=== PATIENT | female | born 1945 | race Caucasian/White ===

== ENCOUNTER 2024-01-30 06:36 | Inpatient (IN) | payer MEDICARE, OTHER, SELFPAY ==
[2024-01-30] VITALS (9 sets, daily range): BP systolic 120–172; BP diastolic 60–96
--- NOTE | 2024-01-30 03:15 | ED.GENMED ---
History of Present Illness
<FRAN Vuong - Last Filed: 01/30/24 06:34>
General
Chief Complaint: Skin Problem
Source: patient
Exam Limitations: none
Time Seen by Provider: 01/30/24 02:59
Travel History
Have you had any contact with someone who has COVID-19?: No
Do you have any symptoms of coronavirus? Fever > 100 degrees, chills, cough, shortness of breath, sore throat, loss of taste or smell, muscle aches, or headache?: No
History of Present Illness
History of Present Illness:
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 Pt reports she was prescribed Cephalexin by her doctor, and now states the redness has expanded
towards the lateral side of her left wrist. She reports her pain is a 10/10. Pt's daughter states she is due for an MRI because she has been progressively declining in gait. She is following her neurologist. Daughter states they originally thought
it was Parkinson disease, but now believes it may be hydrocephalus.
Past History
<FRAN Vuong - Last Filed: 01/30/24 06:34>
Past History
ED Past Medical History: Hypercholesterolemia, Other (MS) and Other (Sjogren's syndrome)
ED Past Surgical History: Orthopedic
Social History
Tobacco: Non-smoker
Living: with family
Employment: Retired
Review of Systems
<FRAN Vuong - Last Filed: 01/30/24 06:34>
Review of Systems
Other source history: family
EENT: Reports no symptoms
Respiratory: Reports no symptoms
Cardiac: Reports no symptoms
ABD/GI: Reports no symptoms
: Reports no symptoms
Musculoskeletal: Reports no symptoms
Skin: Reports other (Erythematous, left lateral wrist)
Neurological: Reports other (Hx of stroke)
Phy Exam
<FRAN Vuong - Last Filed: 01/30/24 06:34>
Physical Exam
Physical Exam:
Erythematous medial and left lateral wrist, visible scratches seen on wrist, warm to the touch
General Physical Exam
General Presentation: mild distress
General age: appears stated age
General Skin: warm
General Habitus: elderly
General Mental: alert
Skin Exam
Skin Exam: erythema, redness and warmth
Course
<FRAN Vuong - Last Filed: 01/30/24 06:34>
Orders/Labs/Results
Orders:
Orders
01/30/24 03:28
CBC/With Diff [Complete Blood Count/With Diff] Urgent
CMP [Comprehensive Metabolic Panel] Urgent
Sed Rate [Erythrocyte Sed Rate] Urgent
01/30/24 03:33
Acetaminophen [Tylenol] 1,000 mg PO NOW STA
01/30/24 03:34
Acetaminophen [Tylenol] 1,000 mg .ROUTE .STK-MED ONE
01/30/24 03:46
Lactic Acid Q4H
Comment: CANCEL 2nd LACTIC ACID IF 1st LACTIC ACID IS LESS THAN 2
Procalcitonin Urgent
PCT Algorithmm Indication: Sepsis
01/30/24 04:04
Piperacillin/Tazo 4.5 Gram [Zosyn] 4.5 gram in 100 ml IV NOW
01/30/24 04:45
0.9% Sodium Chloride 1000 ml [Nss] 1,000 ml IV BOLUS
01/30/24 04:57
Urinalysis Reflex To Culture Urgent
Date Specimen was Collected: 01/30/24
Time Specimen was Collected: 04:56
Urine Microscopic Reflex Cult Urgent
01/30/24 05:03
CT Head W/o Iv Contrast Urgent
Comment:
Reason For Exam: confusion
01/30/24 05:49
HYDROmorphone [Dilaudid] 0.25 mg IV NOW STA
01/30/24 05:54
Doxycycline [Vibramycin] 100 mg PO NOW STA
Rifampin [Rifadin] 300 mg PO NOW STA
01/30/24 05:55
CR Wrist - Left Min 3 Views Urgent
Comment:
Reason For Exam: wrist swelling and infection
01/30/24 06:00
Flush (0.9% Sodium Chloride) [Flush (Nss)] See Dose Instructions IV PER PROTOCOL
01/30/24 06:16
Tetanus/Diphth/Acelpertussis [Adacel] 0.5 ml IM .ONCE ONE
01/30/24 06:20
Admit/Transfer Patient As Directed
Co-Sign Provider:
Level of Care: Inpatient admission
Assign to:: Telemetry
Physician / Group: Mona Moreira
Diagnosis: sepsis 2/2 possible cat scratch disease
Reason for Telemetry: CVA/TIA
Date to Stop Telemetry: 02/02/24
Time to Stop Telemetry: 11:00
Reason for Hospitalization: sepsis 2/2 possible cat scratch disease
Expected length of stay greater than two midnights?: Yes
ELOS- Estimated Length of Stay in days: 3
I certify the patient meets the requirements for IP care: Yes
Bartonella henselae Ab IgG/IgM [S] Urgent
Blood Culture Q30M
DANY Source: Blood/Venous
Specimen Description:
Blood Culture Q30M
DANY Source: Blood/Venous
Specimen Description:
01/30/24 06:21
Code Status As Directed
Resuscitation Status: Full Code
02/02/24 11:00
DC Protocol for Telemetry ONCE
Abnormal Lab Results
01/30/24 01/30/24
03:28 04:57
Hct 35.7 L %
(37.0-47.0)
MPV 10.9 H fL
(7.4-10.4)
Absolute Neuts (auto) 8.4 H 10^3/uL
(1.4-6.5)
Absolute Lymphs (auto) 0.7 L 10^3/uL
(1.2-3.4)
Absolute Monos (auto) 0.7 H 10^3/uL
(0.1-0.6)
Neutrophils % 85.7 H %
(42.2-75.2)
Lymphocytes % 6.7 L %
(20.5-51.1)
ESR 26 H mm/hour
(0-20)
Potassium 3.4 L mmol/L
(3.5-5.1)
Chloride 96 L mmol/L
(98-107)
BUN 24 H mg/dl
(7-17)
Glucose 124 H mg/dl
(70-99)
Calcium 10.7 H mg/dl
(8.4-10.2)
Total Bilirubin 2.0 H mg/dl
(0.2-1.3)
Ur Occult Blood Reflex Trace A
(Negative)
Urine RBC 7-10 A /HPF
(0-2)
Urine Bacteria (Reflex) Few A
(Negative)
01/30/24 03:28
01/30/24 03:28
Vital Signs
Initial and Last Documented VS:
Initial Vital Signs
Temp Pulse Resp BP Pulse Ox
100.3 F 90 20 120/66 99
01/30/24 02:20 01/30/24 02:20 01/30/24 02:20 01/30/24 02:20 01/30/24 02:20
Last Documented Vital Signs
Temp Pulse Resp BP Pulse Ox
100.6 F H 104 18 134/96 100
01/30/24 05:00 01/30/24 05:00 01/30/24 05:00 01/30/24 05:00 01/30/24 05:00
<Gerard Colorado, DO - Last Filed: 01/30/24 05:01>
Orders/Labs/Results
Orders:
Orders
01/30/24 03:28
CBC/With Diff [Complete Blood Count/With Diff] Urgent
CMP [Comprehensive Metabolic Panel] Urgent
Sed Rate [Erythrocyte Sed Rate] Urgent
01/30/24 03:33
Acetaminophen [Tylenol] 1,000 mg PO NOW STA
01/30/24 03:34
Acetaminophen [Tylenol] 1,000 mg .ROUTE .STK-MED ONE
01/30/24 03:46
Lactic Acid Q4H
Comment: CANCEL 2nd LACTIC ACID IF 1st LACTIC ACID IS LESS THAN 2
Procalcitonin Urgent
PCT Algorithmm Indication: Sepsis
01/30/24 04:04
Piperacillin/Tazo 4.5 Gram [Zosyn] 4.5 gram in 100 ml IV NOW
01/30/24 04:45
0.9% Sodium Chloride 1000 ml [Nss] 1,000 ml IV BOLUS
01/30/24 04:57
Urinalysis Reflex To Culture Urgent
Date Specimen was Collected: 01/30/24
Time Specimen was Collected: 04:56
Urine Microscopic Reflex Cult Urgent
01/30/24 05:03
CT Head W/o Iv Contrast Urgent
Comment:
Reason For Exam: confusion
01/30/24 05:49
HYDROmorphone [Dilaudid] 0.25 mg IV NOW STA
01/30/24 05:54
Doxycycline [Vibramycin] 100 mg PO NOW STA
Rifampin [Rifadin] 300 mg PO NOW STA
01/30/24 05:55
CR Wrist - Left Min 3 Views Urgent
Comment:
Reason For Exam: wrist swelling and infection
01/30/24 06:00
Flush (0.9% Sodium Chloride) [Flush (Nss)] See Dose Instructions IV PER PROTOCOL
01/30/24 06:16
Tetanus/Diphth/Acelpertussis [Adacel] 0.5 ml IM .ONCE ONE
01/30/24 06:20
Admit/Transfer Patient As Directed
Co-Sign Provider:
Level of Care: Inpatient admission
Assign to:: Telemetry
Physician / Group: Mona Moreira
Diagnosis: sepsis 2/2 possible cat scratch disease
Reason for Telemetry: CVA/TIA
Date to Stop Telemetry: 02/02/24
Time to Stop Telemetry: 11:00
Reason for Hospitalization: sepsis 2/2 possible cat scratch disease
Expected length of stay greater than two midnights?: Yes
ELOS- Estimated Length of Stay in days: 3
I certify the patient meets the requirements for IP care: Yes
Bartonella henselae Ab IgG/IgM [S] Urgent
Blood Culture Q30M
DANY Source: Blood/Venous
Specimen Description:
Blood Culture Q30M
DANY Source: Blood/Venous
Specimen Description:
01/30/24 06:21
Code Status As Directed
Resuscitation Status: Full Code
02/02/24 11:00
DC Protocol for Telemetry ONCE
Abnormal Lab Results
01/30/24 01/30/24
03:28 04:57
Hct 35.7 L %
(37.0-47.0)
MPV 10.9 H fL
(7.4-10.4)
Absolute Neuts (auto) 8.4 H 10^3/uL
(1.4-6.5)
Absolute Lymphs (auto) 0.7 L 10^3/uL
(1.2-3.4)
Absolute Monos (auto) 0.7 H 10^3/uL
(0.1-0.6)
Neutrophils % 85.7 H %
(42.2-75.2)
Lymphocytes % 6.7 L %
(20.5-51.1)
ESR 26 H mm/hour
(0-20)
Potassium 3.4 L mmol/L
(3.5-5.1)
Chloride 96 L mmol/L
(98-107)
BUN 24 H mg/dl
(7-17)
Glucose 124 H mg/dl
(70-99)
Calcium 10.7 H mg/dl
(8.4-10.2)
Total Bilirubin 2.0 H mg/dl
(0.2-1.3)
Ur Occult Blood Reflex Trace A
(Negative)
Urine RBC 7-10 A /HPF
(0-2)
Urine Bacteria (Reflex) Few A
(Negative)
01/30/24 03:28
01/30/24 03:28
Vital Signs
Initial and Last Documented VS:
Initial Vital Signs
Temp Pulse Resp BP Pulse Ox
100.3 F 90 20 120/66 99
01/30/24 02:20 01/30/24 02:20 01/30/24 02:20 01/30/24 02:20 01/30/24 02:20
Last Documented Vital Signs
Temp Pulse Resp BP Pulse Ox
100.6 F H 104 18 134/96 100
01/30/24 05:00 01/30/24 05:00 01/30/24 05:00 01/30/24 05:00 01/30/24 05:00
<FRAN Vuong - Last Filed: 01/30/24 06:34>
MDM/Problems Addressed
Differential Diagnosis Includes:
Cat scratch fever, Sepsis, Bartonella,
Chronic conditions affecting care: Neurological disorder
Acute Exacerbation and/or Progression of Chronic Illness:
Hx of CVA February 2022
<FRAN Vuong - Last Filed: 01/30/24 06:34>
*Critical Care Note
Total Time (30-74mins, 75-104mins- exclusive of procedures): Not Applicable
ED Attending Note
<FRAN Vuong - Last Filed: 01/30/24 06:34>
-
Portions of this chart may have been created with voice recognition software.� Occasional wrong word or��sound alike� substitutions may have occurred due to the inherent limitations of voice recognition software.
<Gerard Colorado DO - Last Filed: 01/30/24 05:01>
ED Attending Note
Patient seen and examined by attending physician: Yes
I performed the substantive portion of visit, reviewed & personally made and approve the management plan that is documented in note by myself or YESSICA.: No
Discharge Plan
Departure
Patient Disposition: Admit
Date of Disposition: 01/30/24
Time of Disposition: 05:00
Admit to: Telemetry
Presentation/result/management discussed w/ accepting MD/DO: Hospitalist
Discharge Problem:
Fever, Cat scratch, Acute confusion
Prescriptions:
No Action
aripiprazole 5 mg Tablet
2.5 mg PO DAILY
rosuvastatin 40 mg Tablet
40 mg PO DAILY
clopidogrel 75 mg Tablet
75 mg PO DAILY
Edarbyclor 40-25 mg Tablet
1 tab PO DAILY
anastrozole 1 mg Tablet
1 mg PO DAILY
Referrals:
PRIVATE,PHYSICIAN [Family Provider] -
Interventions
Interventions:
*Risk Screen - Suicide Last Done: 01/30/24 02:20
*General Assessment Last Done: 01/30/24 02:20
*Neglect/Abuse Screening Last Done: 01/30/24 02:20
ED- Fall Risk Assessment Last Done: 01/30/24 02:20
*ED COVID-19 Vaccine History Last Done: 01/30/24 02:20
Discharge Date and Time
Print Language: MACEDONIAN
[2024-01-30 03:35] LABS: % Basophils 0.2 % (0-2); % Immature Granulocytes 0.4 % (0-0.5); % Lymphocytes 6.7 % (20.5-51.1); % Neutrophils 85.7 % (42.2-75.2); Absolute Lymphocytes 0.7 10^3/uL (1.2-3.4); Absolute Monocytes 0.7 10^3/uL (0.1-0.6); Absolute Neutrophils 8.4 10^3/uL (1.4-6.5); Hematocrit 35.7 % (37.0-47.0); Hemoglobin 12.9 g/dL (12.0-16.0); Mean Corp Hgb Conc. 36.1 g/dL (33.0-37.0); Mean Corpuscular Hgb 30.3 pg (27.0-31.0); Mean Corpuscular Volume 83.8 fL (81.0-99.0); Mean Platelet Volume 10.9 fL (7.4-10.4); Nucleated Red Blood Cells % 0 %; Platelet Count 201 10^3/uL (130-400); Red Blood Cell Count 4.26 10^6/uL (4.20-5.40); White Blood Cell Count 9.9 10^3/uL (4.8-10.8)
[2024-01-30] MEDS: TYLENOL 1000 MG PO (03:35)
[2024-01-30 03:49] LABS: ALT (SGPT) 24 U/L (0-35); AST (SGOT) 28 U/L (14-36); Albumin 4.6 g/dl (3.5-5.0); Alkaline Phosphatase 53 U/L (38-126); Blood Urea Nitrogen 24 mg/dl (7-17); Calcium 10.7 mg/dl (8.4-10.2); Carbon Dioxide 29 mmol/L (22-30); Chloride 96 mmol/L (98-107); Glucose 124 mg/dl (70-99); Potassium 3.4 mmol/L (3.5-5.1); Sodium 137 mmol/L (135-145); Total Protein 7.4 g/dl (6.3-8.2); eGFR 58.02
[2024-01-30 04:05] LABS: Erythrocyte Sed Rate 26 mm/hour (0-20)
[2024-01-30] MEDS: ZOSYN 100 IV (04:31)
[2024-01-30 04:38] LABS: Procalcitonin < 0.05 ng/ml (0.0-0.25)
[2024-01-30 04:41] LABS: Lactic Acid 1.3 mmol/L (0.7-2.0)
[2024-01-30] MEDS: NSS 1000 IV ×2 (04:54→10:08)
--- NOTE | 2024-01-30 05:05 | HPS.HSE ---
Family Physician
-
Family Physician: PHYSICIAN PRIVATE
Chief Complaint
-
confusion and fever
History of Present Illness
Ms. Gerda Thompson is a 79 yo woman with hx morbid obesity, MS, essential HTN, HLD, Sjogren's disease, CVA presents to the ER with expanding redness at site of a cat scratch on left wrist. Patient got scratched on 01/27 on medial aspect left wrist.
She was told to come to the ER for IV antibiotics but refused, she was prescribed Keflex. She took 2 doses of Keflex but had progressing pain and swelling and was convinced to come to the ER.
Patient has significant tenderness left wrist, cannot flex. No measured fevers at home, febrile here in the ER. No nausea/vomiting/diarrhea. No chest pain or shortness of breath. She intermittently is speaking non-sensical things which daughter
say is new as of today. She also does not know the year. She denies change in vision or pain in her eyes. She denies the cat biting her.
Patient lives alone at home. She has has a history of MS and was ambulatory with a walker up until one month ago when her gait has significantly declined. She went to [facility] where work-up with CT Head and MRI performed which were negative for
acute stroke. It was then thought that ambulation issues were more 2/2 MSK issues and osteoarthritis. She was given a steroid injection and discharged to SNF without improvement. Per further revaluation with her neurologist concern brought up
for missed cerebellar stroke and repeat MRI recommended. Other diagnosis on differential is NPH which her sibling had.
Medical History
Past Medical History
Past Medical History: Reports Other (morbid obesity, essential HTN, HLD, Sjogren's disease, CVA, MS)
Past Surgical History: Reports Other
Social History
Tobacco: Non-smoker
Alcohol: Occasional
Living: With Family
Family History
Family History: Not pertinent
Allergies / Home Medications
Allergies reflects when Allergies were last updated in [facility].
Home Medications with original date entered in [facility]
Allergy/Medication List:
Allergies
Allergy/AdvReac Type Severity Reaction Status Date / Time
Gadolinium-Containing Allergy Unknown Verified 01/30/24 02:19
Contrast Medi
Home Medications
anastrozole 1 mg tablet 1 mg PO DAILY 01/30/24
aripiprazole 5 mg tablet 2.5 mg PO DAILY 01/30/24
azilsartan medoxomil 40 mg-chlorthalidone 25 mg tablet (Edarbyclor) 1 tab PO DAILY 01/30/24
clopidogrel 75 mg tablet 75 mg PO DAILY 01/30/24
rosuvastatin 40 mg tablet 40 mg PO DAILY 01/30/24
Review of Systems
-
History Source: Patient
A 12 point ROS was completed and negative except as noted: Yes
Physical Exam
Vital Signs
Vital Signs
Temp Pulse Resp BP Pulse Ox
100.6 F H 104 18 134/96 100
01/30/24 05:00 01/30/24 05:00 01/30/24 05:00 01/30/24 05:00 01/30/24 05:00
Physical Exam
General: No Apparent Distress, Obese and Other (appears confused)
HEENT: PERRLA
Respiratory: Clear; No Wheezes
Cardiac: S1/S2 and Regular Rhythm
GI: Soft, Non Tender and Non Distended
Musculoskeletal: Other (left wrist with erythema extending from dorsal aspect of hand to forearm; limited range of motion 2/2 tenderness, some tenderness to palpation)
Neuro: Awake, Alert and Oriented (to place, not year )
Psych: Calm and Confused
Laboratory Results
-
01/30/24 03:28
01/30/24 03:28
Laboratory Results
Lactic Acid Cancelled 01/30/24 07:45
Total Bilirubin 2.0 mg/dl (0.2-1.3) H 01/30/24 03:28
AST 28 U/L (14-36) 01/30/24 03:28
ALT 24 U/L (0-35) 01/30/24 03:28
Alkaline Phosphatase 53 U/L (38-126) 01/30/24 03:28
Data Reviewed
-
Diagnostic Radiology: Report Reviewed by me
Lab Data: Labs Reviewed by me
Impression/Plan
-
Ms. Gerda Thompson is a 79 yo woman with hx morbid obesity, MS, essential HTN, HLD, Sjogren's disease, CVA presents to the ER with expanding redness at site of a cat scratch on left wrist. She also has new confusion as of past 24 hours. Patient's
family also describes a month of impaired gait with plans for outpatient work-up of cerebellar stroke versus NPH.
Triage VS: T 100.3 up to 100.6 in ER, P 90, RR 2-, BP 120/66, SpO2 99%
LABS: WBC 9.9, Hg 12.9, PLT 201, Na 137, K+ 3.4, Cl 94, BUN 24, Cr 1.0, Glucose 124, Lactate 1.3, Ca 10.7, T. Bili 2.0, AST 28, ALT 24, Alk Phos 53, Procal < 0.05
MAR: IV Zosyn, IVF, Tylenol
Left wrist cellulitis status post cat scratch, concern for cat scratch disease
Sepsis 2/2 above
TME 2/2 above
-admit to tele
-given association with encephalopathy will treat with doxycycline and Rifampin
-ID consult (texted this morning)
-IVF
-pain control
-x-ray left wrist
-monitor response to antibiotics; if worsening redness/swelling of wrist may need ortho consult
Gait Impairment
Hx CVA
-patient with hx CVA
-will continue [facility] Plavix (*reaction with Rifampin; may increase concentration of Plavix but not absolute contraindication)
-continue statin
-will order MRI here given significant impaired mobility. Team to consider reaching out to outpatient neurologist in AM - will request records
Anxiety
-[facility] Aripiprazole (*reaction with Rifampin - Rifampin may reduce levels Abilify)
Hypokalemia
-replete
Hx Breast Cancer
-[facility] Anastrozole
DVT PPx lovenox subQ
FULL CODE
[2024-01-30 05:09] LABS: Urine Albumin Trace (Neg - Trace); Urine Bilirubin Negative (Negative); Urine Character Clear (Clear); Urine Color Yellow; Urine Glucose Negative (Negative); Urine Ketone Negative (Negative); Urine Leukocyte Negative (Negative); Urine Nitrite Negative (Negative); Urine Occult Blood Trace (Negative); Urine Urobilinogen Negative (Neg - 1+)
[2024-01-30 05:57] LABS: Urine Bacteria Few (Negative)
[2024-01-30] MEDS: VIBRAMYCIN 100 MG PO (06:23)
[2024-01-30] MEDS: DILAUDID 0.25 MG IV ×2 (06:23→17:14)
[2024-01-30] MEDS: RIFADIN 300 MG PO (06:24)
--- NOTE | 2024-01-30 09:04 | W.PN.UPDATE ---
Update Note
Progress Note Update
Non-billable entry; patient admitted at 5 AM by [employer]
Arouses to voice, tactile stimulation
unable to state year otherwise oriented to self, month, hospital, daughter
reports LUE wrist pain, unable to flex wrist due to pain/swelling
Assessment:
Left wrist cellulitis status post cat scratch, concern for cat scratch disease
Sepsis POA (fever, tachycardia) POA
- Xray: no acute pathology
- MRI added
- on Rifampin/Doxy; ID consulted
- Ortho consult
- pain control
TME likely related to above process
Subacute change in mental status x 1 month
- previously evaluated at [facility] [place] [facility]
- CT/MRI negative per daughter, no etiology of change in mental status found; there was brief concern for PD but not corroborated on 2nd opinion. Requested records.
- Due for repeat MRI to evaluate occult CVA which is ordered
- check metabolic workup for change in mental status
- infectious workup pending
- check UDS
- Consult Neurology
Gait Impairment, acute on chronic
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
- await MRI
- continue Plavix/Statin
- PT/OT when able
Anxiety - continue Abilify
Hypokalemia - replete prn
Hx of breast cancer
- continue Anastrazole
DVT ppx: Lovenox
Code: Full
[2024-01-30] MEDS: ABILIFY 2.5 MG PO (10:06)
[2024-01-30] MEDS: PLAVIX 75 MG PO (10:07)
[2024-01-30] MEDS: CRESTOR 40 MG PO (10:07)
[2024-01-30] MEDS: ARIMIDEX 1 MG PO (10:08)
--- NOTE | 2024-01-30 10:13 | CON.NEURO4 ---
Addendum entered and electronically signed by Marcellus Trujillo MD 01/30/24 12:45:
I saw and evaluated the patient I reviewed the note by Brandie Benitez and agree with the findings and following comments:
79-year-old woman with a past medical history of previous posterior cerebral artery stroke, multiple sclerosis, dementia presents to the hospital with left-sided hand pain after cat scratch. She is currently being treated with antibiotics notes
left hand is still very painful.
she did have development of confusion that has improved at this point the patient has no complaints at this time. She denies any recent changes in gait or balance says that she normally uses a walker to get up and move around the house. She is
not entirely clear of her medications but does think she is on a medication for prevention of further strokes. Patient reports that she has a tremor intermittently due to nerve pains this does not occur at rest.
Review of her outpatient neurology records indicate that she has been off immunotherapy for multiple sclerosis for several years she was on Copaxone for few years and eventually came off of the medication and has not been followed by her neurologist
that she would be indicated for further immune therapy for multiple sclerosis.
Due to chronic gait issues she was trialed on carbidopa/levodopa but it seems has come off of it at this point after second opinion felt that she did not have Parkinson's disease. She did have neuropsychological testing with findings supportive of
dementia.
Neurologic examination shows some obvious cognitive impairment and poor memory recall, she is fully awake and alert and conversational and pleasant. Obeys multistep commands no evidence of neglect.
There is a left-sided homonymous hemianopia
Limited motor examination of the left hand due to pain but she is able to move the hands and wrists. Right arm has tremor with position but no significant rigidity.
Assessment: Very likely a toxic metabolic encephalopathy due to current infection which is being treated, risk factors for the development of encephalopathy include history of multiple sclerosis as well as previous ischemic stroke and dementia all
of which make development of encephalopathy/delirium easier in this patient. No concern for MS related problem, doubtful of a new ischemic stroke.
Recommendations
-Minimize sedating medications
-Unless further information comes to light, not going to recommend restarting carbidopa/levodopa
-Continue clopidogrel for secondary stroke prevention
-Check MRI of the brain without contrast
-Continue treating infection
-Try to keep normal sleep-wake cycle and minimize sleep interruptions to help minimize delirium
Original Note:
Consultation - Neurology 4
-
CONSULTING PHYSICIAN: Jesusita Trujillo MD
REFERRING PHYSICIAN: Hospitalists/Dr. Bautista
DICTATED BY: BOOGIE Sheikh
DATE/TIME OF REQUEST: 01/30/24
DATE/TIME OF CONSULTATION: 01/30/24
Reason for Consultation: Ambulatory dysfunction, change in mental status
History of Present Illness:
This is a 79-year-old right-handed female who has presented to the hospital on 01/30/24 with report of LUE cat scratch with redness extending up her arm despite PO Keflex. Patient has a PMH of MS, R DIE GRINDER ischemic stroke, cognitive impairment, and
more recently shuffled gait and is followed as an outpatient by [facility]. She has been evaluated by our inpatient Neurology service once in February 2022 for stroke.
From previous evaluation by Neurology BOOGIE Robertson on 02/14/22:
'This is a 77 year old right handed female, significant past medical history for MS and Sjogren's syndrome, who has presented to the hospital with 4-5 days of blurred vision and 'sense of not feeling well.' Patient's symptoms began roughly 4-5 days
ago when she noted an acute onset of blurry vision. Following vision changes she 'felt unwell' but cannot further elaborate. Her daughter Dana is at bedside and contributing to this HPI. Dana believes patient has increased gait
instability/incoordination and generalized weakness from baseline. However, patient denies. Patient will occasionally utilize walker at home for ambulation but daughter notes she required increase use of walker over past couple of days. She denies
accompanying focal limb weakness, headache, dysphagia, dysarthria, aphasia, paraesthesia, loss of consciousness, and loss of bowel or bladder. Denies similar neurological symptoms in the past. Denies history of stroke or TIA. Patient does have a
past medical history of MS, diagnosed in 2007. Her presenting symptoms at onset of diagnosis included: extreme fatigue, gait imbalance, and bilateral hand weakness. She utilized Copaxone for MS management, however after a year she felt the
medication did not benefit her and she discontinued the medication in 2008 and since has opted to not take a preventive medication for MS. She cannot recall last Ms flare occurrence. She was previously seeing a neurologist at [facility], Dr. Samuels,
but has lost follow up in the past 3-4 years. She has not obtained a repeat MRI of brain for assessment of MS lesions in past 5 years. Denies recent trauma. Reports bronchitis in January. Denies recent changes to medication. She reports compliance with
daily medications including daily Aspirin 81mg PO.'
MRI brain was obtained on 02/14/22 and demonstrated a R DIE GRINDER ischemic stroke. MRA head reading was limited by artifact but was suggestive of a right P2 occlusion. She completed 21 days of DAPT at that time and then was continued on Plavix 75mg daily
since then due to the stroke occurring while on aspirin therapy. Patient has poor insight but reports that she lives alone and ambulates with a rolling walker. She thinks it has been quite awhile since she had a fall. She acknowledges that her
daughters have been concerned about her gait and memory but she does not endorse these issues. Patient has been undergoing an outpatient Neurology workup for confusion, shuffled gait, and falls. She had Neuropsychological testing completed in December
2023 that was suggestive of a diagnosis of dementia. There was some spasticity noted in her thighs and in addition to a severely shuffled gait, her Neurologist started her on Sinemet for possible Parkinson disease. She has not had a CELSO scan. She
was scheduled to have an outpatient MRI brain noncontrast next week to rule out new stroke. She is still not taking any disease modifying treatments for MS and has not had a known MS flare in years. Patient had a transient increase in confusion
after the cat scratch, this has improved somewhat. Patient denies any headache, dizziness, speech/swallow difficulty, new weakness, nausea, chest pain, palpitations, and shortness of breath. She endorses chronic numbness in bilateral hands and
severe pain in her LUE, due to the cat scratch site, limiting her ROM/strength.
Past Medical History: Multiple sclerosis, R DIE GRINDER ischemic stroke 02/2022, left homonymous hemianopia, cognitive impairment, possible Parkinson disease, HTN, HLD, Sjogren's syndrome, DJD, spinal stenosis, osteoarthritis, PVCs, peripheral neuropathy,
obesity
Surgical History: B/L TKR
Family History: Daughter- Lupus. Mother- MS. Maternal cousin- MS. Maternal grandmother- CVA.
Social History: Former smoker. Denies alcohol and illicit drug use.
Allergies: Gadolinium contrast.
Home Medications: See below.
Review of Symptoms:
Patient denies any fever, headache, chest pain, shortness of breath, GI or symptoms.
�Per the HPI.�All systems are reviewed negative except above.
Physical Exam:
The patient is afebrile, abdomen is nondistended, breathing is unlabored, skin is warm and dry, no edema.
Neurologic Examination:
The patient is awake, alert and oriented x 3, poor historian/insight. She is able to follow commands and answer questions appropriately. There is no aphasia or dysarthria. On cranial nerve assessment, pupils are 3 mm bilateral, round and reactive
to light and accommodation. There is a left homonymous hemianopia. Extraocular movements are intact. Facial sensations are intact and bilaterally symmetrical, there is no facial asymmetry. Hearing is intact bilaterally to normal conversation volume.
Tongue palate and uvula are midline. Motor strengths are 5/5 right upper, 2/5 left upper, and 3/5 bilateral lower extremities on medical research [place] scale. There is no drift or involuntary movement noted. Tone is normal. Babinski is absent
bilaterally. There was no extinction noted on double simultaneous stimulation. Coordination is intact by finger to nose in the RUE, CHANDLER LUE.
Lab Results: See below.
Neuro Imaging:
1. CT head 01/30/24: There are moderate changes of cortical atrophy and chronic ischemic disease, unchanged. There is an old right occipital lobe infarct, unchanged. There are no acute findings.
2. MRI brain 02/14/22: Subacute/Acute nonhemorrhagic infarct in the right medial temporal and right occipital lobe. Similar to the finding on CT. Mild to moderate diffuse volume loss. Moderate leukoaraiosis.
3. MRA COW 02/14/22: Severely limited examination due to patient motion. Mild to moderate narrowing of the left ICA in the cavernous sinus. Focal area of stenosis in the proximal MCA bilaterally. Limited visualization of the right DIE GRINDER, no definite
vessel identified past the origin.
4. Carotid ultrasound 02/14/22: Homogenous plaque mid right common carotid artery, calcified bulky plaque right carotid bulb. Based on velocity criteria, no hemodynamically significant stenosis seen in the internal carotid artery. Consider further
enhanced imaging if clinically warranted given bulky plaque, though duplex does not demonstrate hemodynamically significant stenosis by velocity measurements. Right external carotid artery with velocity elevation suggestive of external carotid
artery stenosis proximally diseased but may not be of clinical consequence). Moderate/bulky calcified plaque seen left carotid bulb. No hemodynamically significant left internal carotid artery stenosis greater than 50% seen based on velocity
criteria. Antegrade flow bilateral vertebral arteries.
Differentials for the patient's presentation include:
1. Ambulatory dysfunction, unclear etiology. Possibly due to multiple chronic conditions; MS, stroke, cognitive impairment, age in addition to TME due to cat scratch infection. Low concern for acute MS flare or infectious brain process.
2. Subacute stroke possible.
3. Unclear if Parkinson disease is an accurate diagnosis, needs further outpatient workup for this.
4. Cognitive impairment, possible dementia at baseline.
Recommendations:
-MRI Brain noncontrast pending.
-Goal normotension.
-Checking blood work for metabolic abnormalities.
-Neurological checks per unit guidelines.
-PT/OT/ST evaluations.
-Continue Plavix 75mg daily.
-DVT prophylaxis.
-Will follow pending results.
Discussed patient care with: Dr. Trujillo, the patient, patient's daughter
Vital Signs and Labs
-
Vital Signs and Labs:
Vital Signs
Temp Pulse Resp BP Pulse Ox
97.9 F 94 20 153/66 97
01/30/24 11:43 01/30/24 11:43 01/30/24 11:43 01/30/24 11:43 01/30/24 11:43
Lab Results
01/30/24 03:28
01/30/24 03:28
Sodium 137 mmol/L (135-145) 01/30/24 03:28
Potassium 3.4 mmol/L (3.5-5.1) L 01/30/24 03:28
BUN 24 mg/dl (7-17) H 01/30/24 03:28
Glucose 124 mg/dl (70-99) H 01/30/24 03:28
Calcium 10.7 mg/dl (8.4-10.2) H 01/30/24 03:28
Vitamin B12 766 pg/ml (412-931) 01/30/24 10:08
Medications
-
Active Medications
Generic Name Dose Route Start Last Admin
Trade Name Freq PRN Reason Stop Dose Admin
Acetaminophen 650 mg 01/30/24 08:05
Acetaminophen 325 Mg Tablet PO 02/27/24 08:04
Q4HPRN PRN
mild pain/RAMIREZ/temp> 100.4F
Anastrozole 1 mg 01/30/24 08:05 01/30/24 10:08
Anastrozole 1 Mg Tablet PO 02/27/24 08:04 1 mg
DAILY AUDRA Administration
Aripiprazole 2.5 mg 01/30/24 08:05 01/30/24 10:06
Aripiprazole 5 Mg Tablet PO 02/27/24 08:04 2.5 mg
DAILY AUDRA Administration
Azithromycin 250 mg 01/31/24 08:00
Azithromycin 250 Mg Tablet PO 02/03/24 08:01
DAILY AUDRA
Bisacodyl 10 mg 01/30/24 08:05
Bisacodyl 10 Mg Rectal Suppository RECTAL 02/27/24 08:04
[id number] PRN
constipation
Clopidogrel Bisulfate 75 mg 01/30/24 08:05 01/30/24 10:07
Clopidogrel 75 Mg Tablet PO 02/27/24 08:04 75 mg
DAILY AUDRA Administration
Enoxaparin Sodium 40 mg 01/30/24 18:00
Enoxaparin Sodium 40 Mg/0.4 Ml Syringe SC 02/27/24 17:59
QPM AUDRA
Hydromorphone HCl 0.25 mg 01/30/24 08:05
Hydromorphone 0.5 Mg/0.5 Ml Syringe IV 02/13/24 08:04
Q3HPRN PRN
severe pain
Sodium Chloride 1,000 mls @ 100 mls/hr 01/30/24 08:05 01/30/24 10:08
Nss IV 1,000 mls
.Q10H AUDRA Administration
Ampicillin Sodium/Sulbactam 120 mls @ 240 mls/hr 01/30/24 12:00 01/30/24 12:02
Sodium 3 gm/ Sodium Chloride IV 120 mls
Q6H AUDRA Administration
Polyethylene Glycol 17 grams 01/30/24 08:05
Polyethylene Glycol Powder 17 Grams Packet PO 02/27/24 08:04
DAILYPRN PRN
constipation
Rosuvastatin Calcium 40 mg 01/30/24 08:05 01/30/24 10:07
Rosuvastatin (Crestor) 40 Mg Tablet PO 02/27/24 08:04 40 mg
DAILY AUDRA Administration
Senna/Docusate Sodium 1 tablet 01/30/24 08:05
Docusate W/Senna (Lianna-Colace) Tablet PO 02/27/24 08:04
BIDPRN PRN
constipation
Sodium Chloride 0 flush 01/30/24 06:00
Sodium Chloride 0.9% (Flush) Syringe IV 02/27/24 05:59
PER PROTOCOL AUDRA
Home Medications
�Medication �Instructions �Recorded
alpha lipoic acid 50 mg tablet 50 mg PO DAILY 01/30/24
anastrozole 1 mg tablet 1 mg PO DAILY 01/30/24
aripiprazole 5 mg tablet 2.5 mg PO DAILY 01/30/24
ascorbic acid (vitamin C) 500 mg 500 mg PO DAILY 01/30/24
tablet (Vitamin C)
azilsartan medoxomil 40 1 tab PO DAILY 01/30/24
mg-chlorthalidone 25 mg tablet
(Edarbyclor)
calcium carbonate 500 mg PO DAILY 01/30/24
cholecalciferol (vitamin D3) 25 25 mcg PO DAILY 01/30/24
mcg (1,000 unit) tablet (Vitamin
D3)
clopidogrel 75 mg tablet 75 mg PO DAILY 01/30/24
diazepam 5 mg tablet 5 mg PO HS 01/30/24
magnesium oxide 400 mg PO DAILY 01/30/24
rosuvastatin 40 mg tablet 40 mg PO DAILY 01/30/24
--- NOTE | 2024-01-30 10:25 | CON.ID ---
Consultation
-
Date/Time Consultation Requested: January 30, 2024 0805
Date/Time Consultation Performed: January 30, 2024 1025
Requesting Provider: Dr. Mona Moreira
Performing Provider: Dr. Harriett Beckham
Reason for Consultation: Cat scratch, fever, wrist swelling
Chief Complaint / Past History
Chief Complaint
Left wrist swelling and pain
History of Present Illness
History obtained from the patient as well as from review of medical records. She is a 79-year-old female with multiple sclerosis not on treatment, Sjogren's, peripheral neuropathy, CVA presented to the hospital early this morning due to worsening
left wrist pain and redness. On January 27, patient's 8-year-old pet cat thought that the patient was playing when the patient shook her left hand to get the blood flowing due to neuropathy. The cat jumped on her left wrist and the paws dug on to her
hand. She developed pain right away. Patient refused to come to the ER. She was applying Neosporin to the wounds. However the left wrist swelling, and redness progressed. Her daughter convinced her to come to the hospital. Patient's
temperature was 100.6. Patient noted to be confused. She was started on doxycycline and rifampin. Today patient's mental status change has resolved. She reports that her left wrist is very painful and difficult to move. She denies chills. No
visual changes. She reports she is up-to-date with her tetanus vaccine within the last 10 years. The cat is both an indoor and outdoor cat. Her cat is up-to-date with all vaccines.
Past History
Additional Past Medical History:
Multiple sclerosis
Sjogren's syndrome
Neuropathy
Hypertension
Dyslipidemia
CVA
Arthritis
Spinal stenosis
Hx breast CA
Class III obesity BMI 42
Bilateral knee replacement
Allergy History:
Gadolinium-Containing Contrast Medi Allergy (Verified 01/30/24 02:19)
Unknown
Medications Reviewed: Yes
Current Antibiotics:
Doxycycline
Rifampin
Social History
Tobacco: Former Smoker
Alcohol: None
Drug: None
Living: Alone
Family History
Family History: Not Pertinent
Review of Systems
Review of Systems
General: Negative Change in Appetite
HEENT: Negative Sinus Problems or Headache
Cardiovascular: Negative Chest Pain or Edema
Respiratory: Negative Dyspnea or Cough
Gasteroenterology: Other (no diarrhea); Negative Nausea or Vomiting
Genital / Urological: Negative Dysuria or Flank Pain
Neurological: Negative Headache or Dizziness
All systems: All other systems were reviewed and were negative
Vital Signs
Temp Pulse Resp BP Pulse Ox
99.4 F 102 20 132/74 96
01/30/24 08:29 01/30/24 08:29 01/30/24 08:29 01/30/24 08:29 01/30/24 08:29
Selected Entries
01/30/24
05:00
Temp 100.6 F H
Physical Exam
Physical Exam
Constitutional: No Acute Distress, Comfortable and Obese
Eyes: No Conjunctival Hemorrhage and Sclera Anicteric
Lymph Nodes: Negative Lymphadenopathy
Cardiovascular: Regular Rate and S1/S2
Pulmonary: Clear
Gastrointestinal: Soft, Non Tender, Non Distended and Decreased Bowel Sounds
Genito-Urinary: Negative CVA Tenderness
Skin: Other (Left hand/wrist medially with puncture wounds without drainage, + erythema/edema/warmth medial hand to wirst. + tenderness at wrist, ROM limited. )
Neurological: AO x 3; Negative Meningeal Signs
Lab / Diagnostic Study Results
01/30/24 03:28
01/30/24 03:28
Abs Immat Gran (auto) 0.0 10^3/uL (0-0.05) 01/30/24 03:28
Absolute Neuts (auto) 8.4 10^3/uL (1.4-6.5) H 01/30/24 03:28
Absolute Lymphs (auto) 0.7 10^3/uL (1.2-3.4) L 01/30/24 03:28
Absolute Monos (auto) 0.7 10^3/uL (0.1-0.6) H 01/30/24 03:28
Absolute Basos (auto) 0.0 10^3/uL (0-0.2) 01/30/24 03:28
Immature Gran % 0.4 % (0-0.5) 01/30/24 03:28
Neutrophils % 85.7 % (42.2-75.2) H 01/30/24 03:28
Lymphocytes % 6.7 % (20.5-51.1) L 01/30/24 03:28
Monocytes % 7.0 % (1.7-9.3) 01/30/24 03:28
Eosinophils % 0.0 % (0-6) 01/30/24 03:28
Basophils % 0.2 % (0-2) 01/30/24 03:28
ESR 26 mm/hour (0-20) H 01/30/24 03:28
Lactic Acid Cancelled 01/30/24 07:45
Procalcitonin < 0.05 ng/ml (0.0-0.25) 01/30/24 03:46
Ur Squamous Epith Cells 3-5 /LPF (Few) 01/30/24 04:57
Microbiology Results
Micro:
01/30/24 06:20 Blood Culture - Pending
Blood/Venous
01/30/24 06:20 Blood Culture - Pending
Blood/Venous
01/30/24 Wrist XRAY Left wrist: No acute fracture, malalignment, or radiopaque foreign body. Severe osteoarthritic changes first carpometacarpal joint. Widening of scapholunate interval compatible with prior soft tissue injury.
Assessment / Plan
# Cat-scratch cellulitis of left hand/wrist
# Fever
- Xray no fracture
-Start Unasyn 3g IV q6 for cellulitis.
- Follow temps.
- Too early for disseminated Bartonella/encephalopathy.
Mental status changed resolved quickly.
DC doxycycline and rifampin.
Instead give empiric Z-pamela to prevent potential complications.
[2024-01-30 10:32] LABS: Ammonia < 9 umol/L (9-30)
[2024-01-30 10:38] LABS: Erythrocyte Sed Rate 35 mm/hour (0-20)
[2024-01-30 11:13] LABS: TSH Reflex To Free T4 1.04 uIU/ml (0.47-4.68)
[2024-01-30 11:48] LABS: Folate 12.5 ng/ml (2.76-20); Vitamin B12 766 pg/ml (239-931)
[2024-01-30] MEDS: UNASYN IV ×2 (12:02→17:14)
--- NOTE | 2024-01-30 12:36 | CON.ORTHO ---
Consultation
-
Date/Time Consultation Requested: January 29
Date/Time Consultation Performed: January 29
Requesting Provider: Lily
Performing Provider: Cassia Culver
Reason for Consultation: Cellulitis LEFT wrist/hand s/p cat bite
Consultation - Orthopedics
History
Dictation#[id number]
Asked to see this 79-year-old white female with PMH of CVA (February 2022) on Plavix, Hypercholesterolemia, MS and Sjogren's syndrome who was bitten by her 8-year-old cat on January 29. She tells me she was shaking her hand to improve blood flow due to
her underlying neuropathy and the cat thought she was playing with her. She sustained a bite to the dorsum of the left hand. She was admitted through the ER here at [facility] due to acute confusion as well as this potential cat bite
cellulitis and has been admitted to the hospitalist service for further workup. Repeat brain MRI is pending. Left wrist and hand MRI was added. We have been requested in consultation given her left wrist and hand symptoms. Currently on IVABX. Has
been seen by Dr. Beckham with the ID team
Allergies / Home Medications
Allergy/AdvReac Type Severity Reaction Status Date / Time
Gadolinium-Containing Allergy Unknown Verified 01/30/24 02:19
Contrast Medi
�Medication �Instructions �Recorded
alpha lipoic acid 50 mg tablet 50 mg PO DAILY 01/30/24
anastrozole 1 mg tablet 1 mg PO DAILY 01/30/24
aripiprazole 5 mg tablet 2.5 mg PO DAILY 01/30/24
ascorbic acid (vitamin C) 500 mg 500 mg PO DAILY 01/30/24
tablet (Vitamin C)
azilsartan medoxomil 40 1 tab PO DAILY 01/30/24
mg-chlorthalidone 25 mg tablet
(Edarbyclor)
calcium carbonate 500 mg PO DAILY 01/30/24
cholecalciferol (vitamin D3) 25 25 mcg PO DAILY 01/30/24
mcg (1,000 unit) tablet (Vitamin
D3)
clopidogrel 75 mg tablet 75 mg PO DAILY 01/30/24
diazepam 5 mg tablet 5 mg PO HS 01/30/24
magnesium oxide 400 mg PO DAILY 01/30/24
rosuvastatin 40 mg tablet 40 mg PO DAILY 01/30/24
Vital Signs / Lab Results
Temp Pulse Resp BP Pulse Ox
97.9 F 94 20 153/66 97
01/30/24 11:43 01/30/24 11:43 01/30/24 11:43 01/30/24 11:43 01/30/24 11:43
01/30/24 03:28
01/30/24 03:28
Assessment / Plan
PE: Afeb. AAO x 3. Answers questions appropriately. Directed exam of the left wrist and hand reveals some very mild generalized erythema over the dorsum of the hand into the region of the wrist, not extending beyond the MCPs with 2 punctate barboza
from her cat bite. These areas have early scabbing. No active drainage. No obvious evidence of collection or abscess. Some mild generalized tenderness to palpation. Some difficulty making composite fist due to dorsal left wrist and pain and
pain. no obvious signs of tenosynovitis. Palpable pulses distally. Neurovascularly intact. elbow nontender
WBC-9.9
ESR- 35
CRP- 78.10
Diagnostics: Wrist Xray without acute findings. 1st CMC OA. SL widening indicative of prior injury
Impression: Cat bite cellulitis, low suspicion for abscess or tenosynovitis
Plan: Discussed with attending hospitalist, Dr. Bautista. MRI scan of the left wrist and hand is reasonable. Clinically I am not concerned for collection or abscess at this time. Area of erythema outlined with pen. Continue IV ABX (Unasyn) per ID.
will continue to monitor. After MRI scan results are available we will determine if more definitive management is necessary. Will follow.
[2024-01-30] MEDS: ZITHROMAX 500 MG PO (13:17)
--- NOTE | 2024-01-30 14:39 | CM ---
Met with patient in room. She reports since last discharge from she is living alone in her own home. She has 2 level home with 2 steps to enter. 13 steps with bilateral rails to full bathroom and bedrooms. She has rollator, walking stick, cane,
shower chair and shower rails. she is admitted from home. IN past she has been to [facility] acute rehab.
she is currently on IV antibiotics. to follow for discharge needs.
PCP Dr. Myrna Evans
Pharmacy: [facility]
PLAN:home.
[2024-01-30 15:08] LABS: Syphilis/T. pallidum Ab Reflex Negative (Negative)
[2024-01-30] MEDS: LOVENOX 40 MG SC (17:13)
--- NOTE | 2024-01-30 17:17 | W.PN.UPDATE ---
Update Note
Progress Note Update
Patient seen and examined
Left hand/ wrist cat bite approximately 48 hours ago
No clinical evidence of abscess/ tenosynovitis
Patient does report significant amount of pain. Agree with MRI for better visualization
Continue with Unasyn for now as per ID recommendations
Recommend warm compresses TID
Will follow
[2024-01-30 19:07] LABS: Amphetamines Negative (Negative); Barbiturates Negative (Negative); Benzodiazepines Positive (Negative); Buprenorphine Negative (Negative); Cocaine Negative (Negative); Marijuana Negative (Negative); Methadone Negative (Negative); Methamphetamines Negative (Negative); Opiates Positive (Negative); Phencyclidine Negative (Negative); Tricyclic Antidepressants Negative (Negative)
[2024-01-30 19:30] LABS: Fentanyl, Urine Negative (Negative)
[2024-01-30] MEDS: TYLENOL 650 MG PO (20:39)
[2024-01-30] MEDS: ATIVAN 0.5 MG PO (21:01)
[2024-01-31] VITALS (8 sets, daily range): BP systolic 101–150; BP diastolic 53–86; BMI 40.8
[2024-01-31] MEDS: NSS 1000 IV (00:30)
[2024-01-31] MEDS: UNASYN IV ×5 (00:30→23:08)
[2024-01-31] MEDS: TYLENOL 650 MG PO (04:03)
[2024-01-31] MEDS: DILAUDID 0.25 MG IV ×5 (05:47→21:50)
[2024-01-31 06:59] LABS: Hematocrit 33.4 % (37.0-47.0); Mean Corp Hgb Conc. 35.9 g/dL (33.0-37.0); Mean Corpuscular Hgb 30.8 pg (27.0-31.0); Mean Corpuscular Volume 85.9 fL (81.0-99.0); Mean Platelet Volume 11.6 fL (7.4-10.4); Platelet Count 167 10^3/uL (130-400); Red Blood Cell Count 3.89 10^6/uL (4.20-5.40); Red Cell Dist. Width 13.7 % (11.5-14.5); White Blood Cell Count 9.5 10^3/uL (4.8-10.8)
--- NOTE | 2024-01-31 07:50 | PTCARENOTE ---
Pt aaox2-3 confused at times. On prn pain meds tylenol & dilaudid.Pt refuses warm compress. Pt daughter at bedside wanted to see physician overnight, BOOGIE Jessica made aware of it. All pt questions were answered by RN as needed. Pt left arm elevated
on pillow. GUIDE CHANGER aware of pt tachy on monitor 90-120 not sustaining, pt temp range & rechecked as needed.Pt on bedalarm for safety reasons. Pt rings appropriately.Plan of care continued.
[2024-01-31 07:56] LABS: Blood Urea Nitrogen 13 mg/dl (7-17); Calcium 9.4 mg/dl (8.4-10.2); Carbon Dioxide 27 mmol/L (22-30); Chloride 98 mmol/L (98-107); Estimated Creatinine Clearance 60 ml/min; Glucose 82 mg/dl (70-99); Magnesium 1.7 mg/dl (1.6-2.3); Potassium 2.7 mmol/L (3.5-5.1); Sodium 135 mmol/L (135-145); eGFR > 60.00
[2024-01-31] MEDS: CRESTOR 40 MG PO (09:24)
[2024-01-31] MEDS: ABILIFY 2.5 MG PO (09:24)
[2024-01-31] MEDS: PLAVIX 75 MG PO (09:24)
[2024-01-31] MEDS: ARIMIDEX 1 MG PO (09:24)
[2024-01-31] MEDS: ZITHROMAX 250 MG PO (09:24)
[2024-01-31] MEDS: KCL 270 MEQ IV (09:25)
--- NOTE | 2024-01-31 10:04 | W.PN.HOSP.TC ---
Today's Communication/Plan
-
await MRI imaging
continue IV abx
PT[facility]
Assessment / Plan
Assessment / Plan
Assessment:
Left wrist cellulitis status post cat scratch, concern for cat scratch disease
Sepsis POA (fever, tachycardia) POA
- Xray: no acute pathology
- MRI pending
- ID following; continue Unasyn, day 2
- Ortho following
- pain control and elevate LUE
TME likely related to above process
Subacute change in mental status x 1 month
- previously evaluated at [facility] + [place] [facility]
- CT/MRI negative per daughter, no etiology of change in mental status found; there was brief concern for PD but not corroborated on 2nd opinion. Briefly on Sinemet without any improvement. Also noted diagnosed of Dementia from OP Neurology.
Requested reviewed with Neurology.
- Due for repeat MRI to evaluate occult CVA which is ordered
- metabolic workup negative
- follow infectious workup (UA negative, Bcx pending)
- UDS + opiates/benzos but she received these in hospital. No other positive findings
- Neurology following
Gait Impairment, acute on chronic
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
- await MRI
- continue Plavix/Statin
- PT/OT - SNF recommended
Anxiety - continue Abilify and prn Ativan
Hypokalemia - replete prn
Hx of breast cancer
- continue Anastrazole
DVT ppx: Lovenox
Code: Full
Anticipated Discharge: > 48 hours
Subjective/Interval History
-
Date of Service: January 31, 2024
mentally more alert
reports L hand less painful today
for MRI today
Objective Data
-
Labs:
Laboratory Results
01/31/24
05:19
WBC 9.5
Hgb 12.0
Hct 33.4 L
Plt Count 167
Sodium 135
Potassium 2.7 L*
Chloride 98
Carbon Dioxide 27
BUN 13
Creatinine 0.9
Glucose 82
Calcium 9.4
Vital Signs:
Vital Signs
Temp Pulse Resp BP Pulse Ox
97.9 F 103 18 140/72 92
01/31/24 09:31 01/31/24 07:34 01/31/24 07:34 01/31/24 07:34 01/31/24 07:34
I&O
01/30/24 01/31/24 02/01/24
06:59 06:59 06:59
Intake Total 240 / 240
Balance 240 / 240
Physical Exam
-
General: No Apparent Distress
HEENT: Normocephalic and Atraumatic
Respiratory: Negative Wheezes
Cardiac: Regular Rhythm
GI: Soft and Nontender
Musculoskeletal: Other (L wrist redness, marked and receding from border)
Neuro: Awake
Psych: Apparent Dementia
Data Reviewed
-
Total Time Spent with Patient (in minutes): 42
Labs: Labs Reviewed by me
[2024-01-31] MEDS: NSS IV (10:58)
--- NOTE | 2024-01-31 11:13 | W.PN.UPDATE ---
Update Note
Progress Note Update
Patient being taken down for left hand MRI upon my arrival. She continues to have 8/10 pain in her left hand. She is apprehensive to move the hand or wrist and nursing reports refusal of warm compresses overnight. She is diffusely TTP over dorsum
of hand. No obvious abscesses of fluid collections, but diffuse swelling of dorsum of the hand. Erythema seems to be outside of borders marked yesterday. On IV unasyn per ID. Will await imaging to make further recommendations going forward, but
will tentatively make her NPO after midnight in event that left hand I&D is necessary.
Spoke to daughter, Dana, who is medical POA to update on current status. will reach out after MRI results are obtained. She is apprehensive to consider surgery due to her mother's current neurological decline.
--- NOTE | 2024-01-31 11:28 | W.PN.NEURO.1 ---
Today's Communication / Plan
-
-Continue on Plavix for secondary stroke prevention
-Consider standing Tylenol at home and further nonpharmacologic and pharmacologic therapies for joint pains which probably are contributing to her ambulatory dysfunction
-Follow-up brain MRI final read
-Continue treating infection
-Cautious use of sedating/pain medications here in the inpatient setting given history of dementia and previous stroke to minimize risk of delirium, try and keep adequate sleep-wake cycles
-Check Vitamin B12 B1 and TSH
Neuro Assessment/Plan
Assessment
79-year-old woman with a past medical history of vascular dementia, right posterior cerebral artery stroke, multiple sclerosis, obesity, spinal stenosis, breast cancer presents to the hospital with left hand pain and swelling after cat scratch. She
has been febrile and has been started on antibiotics. Patient did have some confusion.
Review of previous neurology records indicates that she had had a diagnosis based on neuropsychological testing and vascular dementia. She had been trialed on carbidopa/levodopa due to abnormal gait but did not improve with this and has been taken
off the medication. She had been on immunotherapy for multiple sclerosis years ago but at this point has deemed not necessary, previously she had findings of spine lesions from multiple sclerosis.
Patient had had a decline in gait somewhat suddenly around 1 month ago, daughter relates that previous to this she was walking better and that it may have been associated with decreased amount of physical activity. Patient does describe some
neuropathy in the hands and is being treated for breast cancer with anastrozole, also does complain about longstanding feet paresthesia. Has some contribution to pains with milking and movements of the hip and back which may be contributing to
walking issues.
MRI brain on my interpretation shows a chronic right posterior cerebral artery infarction with hydrocephalus ex vacuo in the region of the [employer] infarct. There is global brain atrophy, do not feel that the ventricles are consistent with normal
pressure hydrocephalus, no acute infarct is seen, significant white matter abnormality is seen reflecting possibly multiple sclerosis versus microvascular ischemic disease.
Patient had very likely toxic metabolic encephalopathy due to pre-existing vascular dementia history of stroke and multiple sclerosis all predisposing to confusion in the setting of metabolic abnormality with cellulitis fever and infection.
I described to the patient's daughter that the patient's gait has been a bit of a stack of cards and 1 small push would lead her to have significant gait abnormalities given she has significant pre-existing neurologic diagnoses with history of
multiple sclerosis and lesions affecting the spine, history of ischemic stroke, white matter changes in the brain either from ischemic or multiple sclerosis changes, spinal stenosis, possibly peripheral neuropathy as well.
Joint pain of the hips and back may be her most modifiable factor which is contributing to abnormal gait as well as physical inactivity and deconditioning and obesity.
Subjective/Objective
Subjective Data
Date of Service: January 31, 2024
No acute events, still with left hand pain, denies headache, speech difficulty, vision changes
Objective Data
Vital Signs
Temp Pulse Resp BP Pulse Ox
97.9 F 103 18 140/72 92
01/31/24 09:31 01/31/24 07:34 01/31/24 07:34 01/31/24 07:34 01/31/24 07:34
Lab Results
01/31/24 05:19
01/31/24 05:19
Sodium 135 mmol/L (135-145) 01/31/24 05:19
Potassium 2.7 mmol/L (3.5-5.1) L* 01/31/24 05:19
BUN 13 mg/dl (7-17) 01/31/24 05:19
Glucose 82 mg/dl (70-99) 01/31/24 05:19
Calcium 9.4 mg/dl (8.4-10.2) 01/31/24 05:19
Vitamin B12 766 pg/ml (239-931) 01/30/24 10:08
Ur Buprenorphine Negative (Negative) 01/30/24 18:29
Patient Allergies
Gadolinium-Containing Contrast Medi Allergy (Verified 01/30/24 02:19)
Unknown
Review of Systems
-
History Source: Patient
All other systems: Reviewed and negative
Constitutional: No Symptoms
EENT: No Symptoms Reported
Respiratory: No Symptoms
Cardiac: No Symptoms
Abdomen/GI: No Symptoms
Genitourinary: No Symptoms
Musculoskeletal: No Symptoms
Skin: No Symptoms
Neuro: See existing Neuro Note
Endocrine: No Symptoms
Hematologic / Lymphatic: No Symptoms
Allergy / Immunology: No Symptoms
Physical Exam
-
General: Comfortable
Eyes: No Ptosis
HEENT: Normocephalic
Neck: No Bruits Bilaterally
Respiratory: Clear to Auscultation
Cardiac: Regular Rhythm
GI: Normal Bowel Sounds
Skin: Unremarkable
Extremities: No Clubbing
Extended Neurological Exam
Attention Span & Concentration: Awake, Alert and Interactive
Memory: Reduced
Tremor: Other (Postural right hand tremor)
Speech: Quality Unremarkable and Quantity Unremarkable; Negative Expressive Aphasia, Receptive Aphasia or Dysarthric
Cranial Nerve II: Left Eye: Pupillary Reactivity Unremarkable and Pupillary Size Unremarkable
Cranial Nerve II: Right Eye: Pupillary Reactivity Unremarkable and Pupillary Size Unremarkable
Cranial Nerves III, IV, : Extraocular Movement: Extraocular Movement Full in all Directions
Muscle Strength, Overall: Other (Right arm full strength 5/5, left arm limited due to left hand pain and swelling, legs 3/5 hip flexion effort bilaterally does not sustain against gravity)
--- NOTE | 2024-01-31 11:30 | PTCARENOTE ---
Pt back from MRI at this time, pt unable to tolerate both Brain and Left hand MRIs, will reattempt Left hand MRI. Pt yelling she needs water. Pt drank quite a bit of water and then reported that she felt nauseous. Pt vomited a small amount of yellow
emesis. Pt states that vomiting is due to all the movement. Pt denies abdominal pain. Pt states that she feels better now that she vomited, refusing Zofran, will monitor.
[2024-01-31] MEDS: KCL 40 MEQ PO (11:35)
[2024-01-31] MEDS: VALIUM INJECTION 2 MG IV (12:12)
[2024-01-31] MEDS: TYLENOL 1000 MG PO ×2 (15:34→21:48)
--- NOTE | 2024-01-31 16:24 | W.PN.ID1 ---
Date of Service
Date of Service: January 31, 2024
Today's Communication
Continue abx's.
Assessment / Plan
# Fever - trending down
# Cat-scratch cellulitis of left hand/wrist
- Per daughter, two episodes of cat-scratch. First was about 1 week prior to second (522) incident
-Blood cultures x 2 neg to date
- Xray no fracture
- MRI left hand/wrist pending
-Continue Unasyn 3g IV q6 (d2) for cellulitis.
- Continue empiric Z-pamela (d2) to prevent potential complications of cat-scratch
- Follow temps.
# Additional Past Medical History:
Multiple sclerosis
Sjogren's syndrome
Neuropathy
Hypertension
Dyslipidemia
CVA
Arthritis
Spinal stenosis
Hx breast CA
Class III obesity BMI 42
Bilateral knee replacement
Chief Complaint
-: Cellulitis
Subjective / Review of Systems
Daughter at bedside. Pt currently drowsy from sedative (for MRI)
Per daughter, pt had 2 episodes of cat scratch. First one was a week prior with one one puncture wound without infection. The second cat scratch was 01/27.
Pt still with significant wrist pain.
Vital Signs / Physical Exam
Vital Signs
Vital Signs
Temp Pulse Resp BP Pulse Ox
99.5 F 103 18 149/86 95
01/31/24 15:50 01/31/24 15:50 01/31/24 15:50 01/31/24 15:50 01/31/24 15:50
Selected Entries
01/31/24
03:45
Temp 101.8 F H
Physical Exam
Extremities: Other (left hand/wrist + edema, + pink erythema, 2 dry puncture wounds)
Neurological: Tremors (Drowsy/snoring)
Objective Data
Lab Data
Lab Results
01/31/24 05:19
01/31/24 05:19
ESR 35 mm/hour (0-20) H 01/30/24 10:08
Estimated Creat Clear 60 ml/min 01/31/24 05:19
Lactic Acid Cancelled 01/30/24 07:45
Total Bilirubin 2.0 mg/dl (0.2-1.3) H 01/30/24 03:28
AST 28 U/L (14-36) 01/30/24 03:28
ALT 24 U/L (0-35) 01/30/24 03:28
Alkaline Phosphatase 53 U/L (38-126) 01/30/24 03:28
C-Reactive Protein 78.10 mg/L (0.0-10.00) H 01/30/24 10:08
Most recent labs reviewed.
Micro Results:
01/30/24 06:20 Blood Culture - Preliminary
Blood/Venous No Growth in 24 hours- Final report to follow
01/30/24 06:20 Blood Culture - Preliminary
Blood/Venous No Growth in 24 hours- Final report to follow
01/30/24 Wrist XRAY Left wrist: No acute fracture, malalignment, or radiopaque foreign body. Severe osteoarthritic changes first carpometacarpal joint. Widening of scapholunate interval compatible with prior soft tissue injury.
01/31/24 MRI brain wo: No acute intracranial abnormality noted. Chronic senescent changes.
--- NOTE | 2024-01-31 17:10 | PTCARENOTE ---
Attempted multiple times to do warm compresses to left hand, pt continues to refuse. Elevating left arm on pillow as pt allows/tolerates. No numbness of left hand, positive radial pulse. Remains red, scabbed, warm to the touch.
[2024-01-31] MEDS: LOVENOX SC (18:11)
[2024-01-31] MEDS: SENOKOT-S 1 TABLET PO (18:14)
[2024-01-31] MEDS: FLUSH (NSS) 2 FLUSH IV (18:16)
[2024-02-01] VITALS (13 sets, daily range): BP systolic 126–171; BP diastolic 67–99; BMI 41.1
[2024-02-01] MEDS: DILAUDID 0.25 MG IV ×4 (02:22→16:45)
[2024-02-01] MEDS: UNASYN IV ×4 (05:05→23:11)
[2024-02-01] MEDS: ZITHROMAX 250 MG PO (08:05)
[2024-02-01] MEDS: ABILIFY 2.5 MG PO (08:05)
[2024-02-01] MEDS: CRESTOR 40 MG PO (08:05)
[2024-02-01] MEDS: ARIMIDEX 1 MG PO (08:06)
[2024-02-01] MEDS: TYLENOL 1000 MG PO ×3 (08:06→23:51)
[2024-02-01] MEDS: PLAVIX PO (08:19)
[2024-02-01 08:20] LABS: Hematocrit 31.3 % (37.0-47.0); Hemoglobin 11.5 g/dL (12.0-16.0); Mean Corp Hgb Conc. 36.7 g/dL (33.0-37.0); Mean Corpuscular Hgb 30.3 pg (27.0-31.0); Mean Corpuscular Volume 82.4 fL (81.0-99.0); Mean Platelet Volume 10.9 fL (7.4-10.4); Platelet Count 163 10^3/uL (130-400); Red Cell Dist. Width 13.7 % (11.5-14.5); White Blood Cell Count 7.1 10^3/uL (4.8-10.8)
[2024-02-01 08:53] LABS: Blood Urea Nitrogen 16 mg/dl (7-17); Calcium 9.5 mg/dl (8.4-10.2); Carbon Dioxide 28 mmol/L (22-30); Chloride 99 mmol/L (98-107); Estimated Creatinine Clearance 68 ml/min; Glucose 85 mg/dl (70-99); Potassium 3.3 mmol/L (3.5-5.1); Sodium 136 mmol/L (135-145); eGFR > 60.00
--- NOTE | 2024-02-01 08:57 | W.PN.HOSP.TC ---
Today's Communication/Plan
-
OR today; please obtain cultures in OR
continue IV abx
Assessment / Plan
Assessment / Plan
Assessment:
Left wrist cellulitis status post cat scratch, concern for cat scratch disease
Sepsis POA (fever, tachycardia) POA
- Xray: no acute pathology
- MRI: Focal mild tenosynovitis of the flexor pollicis longus and flexor digitorum profundus tendons within the distal forearm. Mild to moderate diffuse subcutaneous edema throughout the dorsal wrist and hand suggesting cellulitis. No loculated
fluid collections.
- Ortho following; for OR today. Please obtain intra-operative cultures
- ID following; continue Unasyn, day 3 - follow cultures
- continue Azithromycin, day 3 to prevent potential complications of cat-scratch
- pain control and elevate LUE
TME likely related to above process
Subacute change in mental status x 1 month
- previously evaluated at [facility] + [place] [facility]
- outpatient CT/MRI negative per daughter, no etiology of change in mental status found; there was brief concern for PD but not corroborated on 2nd opinion. Briefly on Sinemet without any improvement. Also noted diagnosed of Dementia from OP
Neurology. Requested reviewed with Neurology.
- [place] MRI: No acute intracranial abnormality noted. Chronic senescent changes.
- metabolic workup negative
- infectious workup aside from cat scratch disease negative
- UDS + opiates/benzos but she received these in hospital. No other positive findings
- Neurology following
Gait Impairment, acute on chronic
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
- [place] MRI: No acute intracranial abnormality noted. Chronic senescent changes.
- continue Statin
- hold Plavix for OR
- Gait dysfunction related to advanced arthritis as well - increase Tylenol to standing
- PT/OT - SNF recommended
Anxiety - continue Abilify and prn Ativan
Hypokalemia - replete prn
Hx of breast cancer
- continue Anastrazole
DVT ppx: Lovenox
Code: Full
Anticipated Discharge: > 48 hours
Subjective/Interval History
-
Date of Service: February 01, 2024
still having L wrist/hand pain
for OR today
Objective Data
-
Labs:
Laboratory Results
02/01/24 02/01/24
08:04 08:05
WBC 7.1
Hgb 11.5 L
Hct 31.3 L
Plt Count 163
Sodium 136
Potassium 3.3 L
Chloride 99
Carbon Dioxide 28
BUN 16
Creatinine 0.8
Glucose 85
Calcium 9.5
Vital Signs:
Vital Signs
Temp Pulse Resp BP Pulse Ox
99.8 F 109 18 164/86 95
02/01/24 08:24 02/01/24 08:24 02/01/24 08:24 02/01/24 08:24 02/01/24 08:24
I&O
01/31/24 02/01/24 02/02/24
06:59 06:59 06:59
Intake Total 240 / 240 1300 / 1300
Balance 240 / 240 1300 / 1300
Physical Exam
-
General: No Apparent Distress
HEENT: Normocephalic
Respiratory: Negative Wheezes
Cardiac: Regular Rhythm
GI: Soft
Musculoskeletal: Other (Left wrist cellulitis)
Neuro: Awake
Psych: Apparent Dementia
Data Reviewed
-
Total Time Spent with Patient (in minutes): 45
Labs: Labs Reviewed by me
--- NOTE | 2024-02-01 10:06 | W.PN.UPDATE ---
Update Note
Progress Note Update
Late entry.
Patient was seen around 8am
MRI was reviewed
There is no significant clinical improvements and patient continues with warmth, pain mostly on the dorsal side of the left hand
Will proceed with I&D in the OR this AM
Consent obtained from the daughter after discussing all risks and benefits
--- NOTE | 2024-02-01 11:04 | W.PN.ID1 ---
Date of Service
Date of Service: February 01, 2024
Today's Communication
Please sent intra-op cultures.
Assessment / Plan
# Fever - resolec
# Cat-scratch cellulitis of left hand/wrist
# Tenosynovitis
- Per daughter, two episodes of cat-scratch. First was about 1 week prior to second (522) incident
-Blood cultures x 2 neg to date
- s/p Tdap 01/30/24
- MRI left hand/wrist: tenosynovitis of the flexor pollicis longus and flexor digitorum profundus tendons
- To OR per ortho. PLEASE SEND INTRA-OP CX'S.
-Continue Unasyn 3g IV q6 (d3) for cellulitis/tenosynovitis.
- Continue empiric Z-pamela (d3 of 5) to prevent potential complications of cat-scratch
# Additional Past Medical History:
Multiple sclerosis
Sjogren's syndrome
Neuropathy
Hypertension
Dyslipidemia
CVA
Arthritis
Spinal stenosis
Hx breast CA
Class III obesity BMI 42
Bilateral knee replacement
Chief Complaint
-: Cellulitis
Subjective / Review of Systems
c/o wrist pain.
daughter at bedside
Vital Signs / Physical Exam
Vital Signs
Vital Signs
Temp Pulse Resp BP Pulse Ox
99.8 F 109 18 164/86 95
02/01/24 08:24 02/01/24 08:24 02/01/24 08:24 02/01/24 08:24 02/01/24 08:24
Physical Exam
Constitutional: No Acute Distress
Extremities: Other (left hand/wrist: + edema, 3 puncture wounds stable/dry, erythema slightly decreased)
Wound: Other
Neurological: AO x 3
Objective Data
Lab Data
Lab Results
02/01/24 08:05
02/01/24 08:04
ESR 35 mm/hour (0-20) H 01/30/24 10:08
Estimated Creat Clear 68 ml/min 02/01/24 08:04
Lactic Acid Cancelled 01/30/24 07:45
Total Bilirubin 2.0 mg/dl (0.2-1.3) H 01/30/24 03:28
AST 28 U/L (14-36) 01/30/24 03:28
ALT 24 U/L (0-35) 01/30/24 03:28
Alkaline Phosphatase 53 U/L (38-126) 01/30/24 03:28
C-Reactive Protein 78.10 mg/L (0.0-10.00) H 01/30/24 10:08
Most recent labs reviewed.
Micro Results:
01/30/24 06:20 Blood Culture - Preliminary
Blood/Venous No Growth in 48 hours- Final report to follow
01/30/24 06:20 Blood Culture - Preliminary
Blood/Venous No Growth in 48 hours- Final report to follow
01/30/24 Wrist XRAY Left wrist: No acute fracture, malalignment, or radiopaque foreign body. Severe osteoarthritic changes first carpometacarpal joint. Widening of scapholunate interval compatible with prior soft tissue injury.
01/31/24 MRI brain wo: No acute intracranial abnormality noted. Chronic senescent changes.
01/31/24 MRI LUE: Focal mild tenosynovitis of the flexor pollicis longus and flexor digitorum profundus tendons within the distal forearm.Mild to moderate diffuse subcutaneous edema throughout the dorsal wrist and hand suggesting cellulitis. No
loculated fluid collections. Small carpus effusion. Small effusion of the distal radioulnar joint. No osteomyelitis.
Care Review
Plan reviewed with: Physician (Dr. Bautista)
--- NOTE | 2024-02-01 11:19 | W.IMMPOSTOP ---
Surgical Immed Post Op Note
-
Primary Surgeon: Abiola
Pre-op Diagnosis: Left hand/ wrist infection
Post-op Diagnosis: Left wrist septic arthritis. Left hand I&D excisional from skin to wrist joint
Procedure Performed: Left hand and wrist joint I&D
Anesthesia Type: General
Specimen / Cultures: Left wrist superficial (tenosynovium) and wrist joint fluid
Estimated Blood Loss: 2cc
Complications: None
Operative Findings:
There was purulence in the wrist joint
Dictated [id number]
Plan:
- IV abx per ID recommendations
- Keep splint, dressing for 2-3 days.
- Change dressing and remove packing in 2-3 days
- Warm compresses
--- NOTE | 2024-02-01 11:28 | SUR.PHASEI ---
Rec'd sleepy in bed with HOB elevated low fowlers, IV infusing well, L arm elevated on pillow Oriented x 3 by RN, denies pain, daughter in
--- NOTE | 2024-02-01 11:32 | SUR.PHASEI ---
More alert, airway out thomas well, thomas ice chips well
--- NOTE | 2024-02-01 11:52 | SUR.PHASEI ---
More alert, thomas ice chips well, c/o being hot, blankets removed, positioned for comfort, cool compress to forehead thomas well
--- NOTE | 2024-02-01 12:18 | SUR.PHASEI ---
Awake stable for discharge, positioned for comfort, room unavailable, reassured, unable to locate from since noon
--- NOTE | 2024-02-01 12:19 | CM ---
Patient seen at bedside as she is ready for surgery, and daughter also with patient. Daughter stated that she was following her mother down to the waiting room. Patient daughter did not want to talk to CM at this time. CM will attempt to revisit to
discuss options for post hospital SNF vs VN.
Plan; TBD
Watch for possible IV antibiotic need
--- NOTE | 2024-02-01 12:33 | SUR.PHASEI ---
Room not ready, pt given bedpan
[2024-02-01] MEDS: LOVENOX 40 MG SC (16:59)
[2024-02-01] MEDS: TYLENOL 650 MG PO (19:49)
[2024-02-01] MEDS: ATIVAN 0.5 MG PO (22:50)
[2024-02-02] VITALS (7 sets, daily range): BP systolic 104–140; BP diastolic 45–77; PULSE 86; O2SAT 96; BMI 40.9
[2024-02-02] MEDS: UNASYN IV ×4 (05:23→23:01)
[2024-02-02] MEDS: DILAUDID 0.25 MG IV ×4 (05:29→18:58)
[2024-02-02] MEDS: ZITHROMAX 250 MG PO (07:04)
[2024-02-02] MEDS: PLAVIX 75 MG PO (07:04)
[2024-02-02] MEDS: ABILIFY 2.5 MG PO (07:05)
[2024-02-02] MEDS: CRESTOR 40 MG PO (07:05)
[2024-02-02] MEDS: ARIMIDEX 1 MG PO (07:05)
[2024-02-02 08:20] LABS: Hematocrit 30.8 % (37.0-47.0); Hemoglobin 10.8 g/dL (12.0-16.0); Mean Corp Hgb Conc. 35.1 g/dL (33.0-37.0); Mean Corpuscular Volume 85.6 fL (81.0-99.0); Mean Platelet Volume 11.3 fL (7.4-10.4); Platelet Count 171 10^3/uL (130-400); Red Cell Dist. Width 13.6 % (11.5-14.5); White Blood Cell Count 6.5 10^3/uL (4.8-10.8)
[2024-02-02] MEDS: TYLENOL 1000 MG PO ×3 (09:21→22:48)
[2024-02-02 10:05] LABS: Blood Urea Nitrogen 21 mg/dl (7-17); Calcium 9.3 mg/dl (8.4-10.2); Carbon Dioxide 32 mmol/L (22-30); Chloride 97 mmol/L (98-107); Estimated Creatinine Clearance 61 ml/min; Glucose 113 mg/dl (70-99); Sodium 136 mmol/L (135-145); eGFR > 60.00
--- NOTE | 2024-02-02 10:19 | W.PN.HOSP.TC ---
Today's Communication/Plan
-
.
Assessment / Plan
Assessment / Plan
Physical Exam
-
General: No Apparent Distress
HEENT: Normocephalic
Respiratory: Negative Wheezes
Cardiac: Regular Rhythm
GI: Soft. Nontender
Musculoskeletal: Left hand/wrist clean dressing
Neuro: Awake, she followed commands.
Psych: No agitation
Assessment:
# Left wrist septic arthritis and left hand infection / Left wrist cellulitis status post cat scratch, concerning for cat scratch disease
Sepsis POA (fever, tachycardia) POA
- Xray: no acute pathology
- MRI: Focal mild tenosynovitis of the flexor pollicis longus and flexor digitorum profundus tendons within the distal forearm. Mild to moderate diffuse subcutaneous edema throughout the dorsal wrist and hand suggesting cellulitis. No loculated
fluid collections.
- S/P left hand I&D, left wrist arthrotomy/incision and debridement by Dr. Culver on 01/31, no complications reported.
-Continue with Unasyn and Zithromax. Afebrile. WBC normal.
- pain control and elevate LUE.
-Blood culture no growth. Await OR culture
-Appreciate ID and orthopedic help
#Toxic metabolic encephalopathy TME likely related to above process
Subacute change in mental status x 1 month
She seems to go back to her baseline
- previously evaluated at [facility] + [place] [facility]
- outpatient CT/MRI negative per daughter, no etiology of change in mental status found; there was brief concern for PD but not corroborated on 2nd opinion. Briefly on Sinemet without any improvement. Also noted diagnosed of Dementia from OP
Neurology. Requested reviewed with Neurology.
- [place] MRI: No acute intracranial abnormality noted. Chronic senescent changes.
- metabolic workup negative
- infectious workup aside from cat scratch disease negative
- UDS + opiates/benzos but she received these in hospital. No other positive findings
-Appreciate neurology help
#Gait Impairment, acute on chronic
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
- [place] MRI: No acute intracranial abnormality noted. Chronic senescent changes.
- continue Statin
- hold Plavix for OR
- Gait dysfunction related to advanced arthritis as well - increased Tylenol to standing
- PT/OT - SNF recommended. Discussed with PT,
#Anxiety - continue Abilify and prn Ativan
#Hypokalemia -order potassium chloride
#Hx of breast cancer
- continue Anastrazole
# Hypomagnesemia. Magnesium 1.7. Given oral magnesium
# Obesity, BMI 40
DVT ppx: Lovenox
Code: Full
Total time spent to see the patient, examine the patient on the floor, review data and lab results, discuss treatment plan with patient, family, PT, nursing staff around 55 minutes
Anticipated Discharge: > 48 hours
Subjective/Interval History
-
Date of Service: February 02, 2024
Less pain in left hand
No fevers
No chest pain
No sob
Objective Data
-
Labs:
Laboratory Results
02/02/24 02/02/24
07:14 09:36
WBC 6.5
Hgb 10.8 L
Hct 30.8 L
Plt Count 171
Sodium Cancelled 136
Potassium Cancelled 3.0 L
Chloride Cancelled 97 L
Carbon Dioxide Cancelled 32 H
BUN Cancelled 21 H
Creatinine Cancelled 0.9
Glucose Cancelled 113 H
Calcium Cancelled 9.3
Vital Signs:
Vital Signs
Temp Pulse Resp BP Pulse Ox
98.3 F 87 17 135/70 96
02/02/24 07:00 02/02/24 07:00 02/02/24 07:00 02/02/24 07:00 02/02/24 07:00
I&O
02/01/24 02/02/24 02/03/24
06:59 06:59 06:59
Intake Total 1300 / 1300 1060 / 1060
Output Total 200 / 200
Balance 1300 / 1300 860 / 860
--- NOTE | 2024-02-02 11:18 | W.PN.ORTHO ---
Today's Communication / Plan
-
POD #1 s/p left hand/wrist I&D.
- maintain post op splint 2-3 days.
- encourage movement of fingers/making fist to tolerance.
- Dressing to be removed with packing removed in next 1-2 days.
- Once dressing changed, resume warm compresses TID.
- Continue to follow OR cultures - no growth, gram stain with WBC, no organisms seen.
- Continue antibiotics per ID recommendations.
Assessment
.
Distal Motor Intact: Yes
Dressing:
Clean, dry and intact.
Assessment:
POD #1 s/p left hand/wrist I&D.
- maintain post op splint 2-3 days.
- encourage movement of fingers/making fist to tolerance.
- Dressing to be removed with packing removed in next 1-2 days.
- Once dressing changed, resume warm compresses TID.
- Continue to follow OR cultures - no growth, gram stain with WBC, no organisms seen.
- Continue antibiotics per ID recommendations.
Plan
.
Surgery / Date: 02/01/24 left hand/wrist I&D - Dr. Culver
Activity:
Out of bed.
PT/OT
Subjective
.
.:
Patient resting comfortably in bed. Reports the hand is still uncomfortable, but improving slowly.
Vital Signs and Labs
.
Vital Signs and Labs:
Lab Results
02/02/24 07:14
02/02/24 09:36
Temp Pulse Resp BP Pulse Ox
98.3 F 87 17 135/70 96
02/02/24 07:00 02/02/24 07:00 02/02/24 07:00 02/02/24 07:00 02/02/24 07:00
Physical Exam
-
Left hand/wrist: post op splint in place. Able to wiggle fingers. Less tenderness to palpation about dorsum of hand and fingers. N/v intact distally
--- NOTE | 2024-02-02 11:45 | W.PN.ID1 ---
Date of Service
Date of Service: February 02, 2024
Today's Communication
Continue Unasyn, azithromycin.
Assessment / Plan
# Fever - resolved
# Cat-scratch cellulitis of left hand/wrist
# Tenosynovitis
- Per daughter, two episodes of cat-scratch. First was about 1 week prior to second (522) incident
-Blood cultures x 2 neg to date
- s/p Tdap 01/30/24
- MRI left hand/wrist: tenosynovitis of the flexor pollicis longus and flexor digitorum profundus tendons
- 02/01 OR I+D + purulent material, OR cx neg to date
-Continue Unasyn 3g IV q6 (d4) for cellulitis/tenosynovitis.
- Continue empiric Z-pamela (d4 of 5) to prevent potential complications of cat-scratch
# Additional Past Medical History:
Multiple sclerosis
Sjogren's syndrome
Neuropathy
Hypertension
Dyslipidemia
CVA
Arthritis
Spinal stenosis
Hx breast CA
Class III obesity BMI 42
Bilateral knee replacement
Chief Complaint
-: Cellulitis
Subjective / Review of Systems
Has post-op pain.
Vital Signs / Physical Exam
Vital Signs
Vital Signs
Temp Pulse Resp BP Pulse Ox
98 F 86 18 104/45 95
02/02/24 11:20 02/02/24 11:20 02/02/24 11:20 02/02/24 11:20 02/02/24 11:20
Physical Exam
Constitutional: No Acute Distress
Pulmonary: Clear
Gastrointestinal: Soft and Non Tender
Wound: Other (left hand/wrist dressing dry)
Neurological: AO x 3
Objective Data
Lab Data
Lab Results
02/02/24 07:14
02/02/24 09:36
ESR 35 mm/hour (0-20) H 01/30/24 10:08
Estimated Creat Clear 61 ml/min 02/02/24 09:36
Lactic Acid Cancelled 01/30/24 07:45
Total Bilirubin 2.0 mg/dl (0.2-1.3) H 01/30/24 03:28
AST 28 U/L (14-36) 01/30/24 03:28
ALT 24 U/L (0-35) 01/30/24 03:28
Alkaline Phosphatase 53 U/L (38-126) 01/30/24 03:28
C-Reactive Protein 78.10 mg/L (0.0-10.00) H 01/30/24 10:08
Most recent labs reviewed.
Micro Results:
02/01/24 10:45 Wound Culture - Preliminary
Surgical Wound No growth
Gram Stain - Preliminary
02/01/24 10:45 Anaerobic Culture - Preliminary
Hand - Left Culture pending. Anaerobic cultures are examined after 3
days incubation. Additional information to follow.
01/30/24 06:20 Blood Culture - Preliminary
Blood/Venous No Growth in 72 hours- Final report to follow
01/30/24 06:20 Blood Culture - Preliminary
Blood/Venous No Growth in 72 hours- Final report to follow
01/30/24 Wrist XRAY Left wrist: No acute fracture, malalignment, or radiopaque foreign body. Severe osteoarthritic changes first carpometacarpal joint. Widening of scapholunate interval compatible with prior soft tissue injury.
01/31/24 MRI brain wo: No acute intracranial abnormality noted. Chronic senescent changes.
01/31/24 MRI LUE: Focal mild tenosynovitis of the flexor pollicis longus and flexor digitorum profundus tendons within the distal forearm.Mild to moderate diffuse subcutaneous edema throughout the dorsal wrist and hand suggesting cellulitis. No
loculated fluid collections. Small carpus effusion. Small effusion of the distal radioulnar joint. No osteomyelitis.
[2024-02-02] MEDS: KCL 40 MEQ PO (12:16)
--- NOTE | 2024-02-02 13:17 | PTCARENOTE ---
Attempted to provide hygiene care to patient this am. Pt refused, saying 'my daughter will take care of that when she gets here'. Povided daughter with linens,wipes,attends,and kovidiens.
[2024-02-02] MEDS: LOVENOX 40 MG SC (17:13)
[2024-02-02] MEDS: MAGNESIUM OXIDE 500 MG PO (21:00)
[2024-02-02] MEDS: ATIVAN 0.5 MG PO (22:49)
[2024-02-02] MEDS: SENOKOT-S 1 TABLET PO (22:49)
[2024-02-03] MEDS: UNASYN IV ×3 (05:09→17:17)
[2024-02-03 07:00] VITALS: BP 162/74
--- NOTE | 2024-02-03 07:47 | W.PN.ORTHO ---
Addendum entered and electronically signed by Taye Culver MD 02/03/24 13:14:
Patient seen and examined
Continues with pain, decreased ROM
There is serous drainage on the dressing
Warm water soaks diluted with Hibiclens for 20 Mins three times a day
Encourage her to move the finger, hand, wrist during soaks
Continue with IV abx
Original Note:
Today's Communication / Plan
-
POD #2 s/p left hand/wrist I&D.
- Postop splint and dressings removed. Packing removed. New dry dressing of non-adherent dressing, 4x4, shayne, and LOYDA wrap applied. May change dressing as needed
- Encourage movement of fingers/making fist to tolerance.
- May resume warm compresses TID.
- Continue with pain management as needed
- Continue to follow OR cultures - no growth, gram stain with WBC, no organisms seen.
- Continue antibiotics per ID recommendations, currently on Unasyn
Assessment
.
Distal Motor Intact: Yes
Dressing:
Clean, dry and intact.
Plan
.
Surgery / Date: 02/01/24 left hand/wrist I&D - Dr. Culver
Activity:
Out of bed.
PT/OT
Subjective
.
.:
Patient resting comfortably in bed on my arrival. She reports pain in the left hand/wrist
Vital Signs and Labs
.
Vital Signs and Labs:
Lab Results
02/02/24 07:14
Temp Pulse Resp BP Pulse Ox
98.4 F 87 18 162/74 97
02/03/24 07:00 02/03/24 07:00 02/03/24 07:00 02/03/24 07:00 02/03/24 07:00
Physical Exam
-
Left hand/wrist: post op splint in place. This was removed for further evaluation. There is a well approximated surgical incision with sutures and packing in place. Able to wiggle fingers. Very mild tenderness to palpation about dorsum of hand and
fingers. N/v intact distally
[2024-02-03] MEDS: PLAVIX 75 MG PO (08:02)
[2024-02-03] MEDS: TYLENOL PO ×2 (08:02→08:14)
[2024-02-03] MEDS: ABILIFY 2.5 MG PO (08:02)
[2024-02-03] MEDS: MAGNESIUM OXIDE 500 MG PO ×2 (08:03→20:46)
[2024-02-03] MEDS: ARIMIDEX 1 MG PO (08:03)
[2024-02-03] MEDS: ZITHROMAX 250 MG PO (08:03)
[2024-02-03] MEDS: CRESTOR 40 MG PO (08:03)
[2024-02-03 08:30] LABS: Bartonella henselae IgG <1:64; Bartonella henselae IgM < 1:16
[2024-02-03] MEDS: NORCO 5/325 1 TABLET PO ×4 (09:11→20:46)
--- NOTE | 2024-02-03 12:33 | CM ---
Case management following for d/c planning
PT recommending SNF
Spoke with pt - referred to family
Spoke with pts daughter Dana [phone]. Discussed SNF recommendation. Daughter [facility]
Will send referral in [facility]
CM will follow for d/c planning
Plan - SNF when medically ready. No auth needed
--- NOTE | 2024-02-03 14:40 | W.PN.ID1 ---
Date of Service
Date of Service: February 03, 2024
Today's Communication
Continue Unasyn.
Assessment / Plan
# Fever - resolved
# Cat-scratch cellulitis of left hand/wrist
# Tenosynovitis
- Per daughter, two episodes of cat-scratch. First was about 1 week prior to second (01/27) incident
-Blood cultures x 2 neg to date
- s/p Tdap 01/30/24
-s/p Z-pamela to prevent potential complications from cat-scratch
- MRI left hand/wrist: tenosynovitis of the flexor pollicis longus and flexor digitorum profundus tendons
- 02/01 OR I+D + purulent material, OR cx neg to date
-Continue Unasyn 3g IV q6 (d5) for cellulitis/tenosynovitis.
# Additional Past Medical History:
Multiple sclerosis
Sjogren's syndrome
Neuropathy
Hypertension
Dyslipidemia
CVA
Arthritis
Spinal stenosis
Hx breast CA
Class III obesity BMI 42
Bilateral knee replacement
Chief Complaint
-: Cellulitis
Subjective / Review of Systems
Wrist still sore
Vital Signs / Physical Exam
Vital Signs
Vital Signs
Temp Pulse Resp BP Pulse Ox
98.4 F 87 18 162/74 97
02/03/24 07:00 02/03/24 07:00 02/03/24 07:00 02/03/24 07:00 02/03/24 07:00
Physical Exam
Constitutional: No Acute Distress
Wound: Other (Left hand dressing dry)
Objective Data
Lab Data
Lab Results
02/02/24 07:14
ESR 35 mm/hour (0-20) H 01/30/24 10:08
Estimated Creat Clear 61 ml/min 02/02/24 09:36
Lactic Acid Cancelled 01/30/24 07:45
Total Bilirubin 2.0 mg/dl (0.2-1.3) H 01/30/24 03:28
AST 28 U/L (14-36) 01/30/24 03:28
ALT 24 U/L (0-35) 01/30/24 03:28
Alkaline Phosphatase 53 U/L (38-126) 01/30/24 03:28
C-Reactive Protein 78.10 mg/L (0.0-10.00) H 01/30/24 10:08
Most recent labs reviewed.
Micro Results:
02/01/24 10:45 Anaerobic Culture - Preliminary
Hand - Left Culture pending. Anaerobic cultures are examined after 3
days incubation. Additional information to follow.
02/01/24 10:45 Wound Culture - Preliminary
Surgical Wound No growth
Gram Stain - Preliminary
01/30/24 06:20 Blood Culture - Preliminary
Blood/Venous No Growth in 4 days- Final report to follow
01/30/24 06:20 Blood Culture - Preliminary
Blood/Venous No Growth in 4 days- Final report to follow
01/30/24 Wrist XRAY Left wrist: No acute fracture, malalignment, or radiopaque foreign body. Severe osteoarthritic changes first carpometacarpal joint. Widening of scapholunate interval compatible with prior soft tissue injury.
01/31/24 MRI brain wo: No acute intracranial abnormality noted. Chronic senescent changes.
01/31/24 MRI LUE: Focal mild tenosynovitis of the flexor pollicis longus and flexor digitorum profundus tendons within the distal forearm.Mild to moderate diffuse subcutaneous edema throughout the dorsal wrist and hand suggesting cellulitis. No
loculated fluid collections. Small carpus effusion. Small effusion of the distal radioulnar joint. No osteomyelitis.
[2024-02-03 15:00] VITALS: BP 166/91
[2024-02-03] MEDS: LOVENOX 40 MG SC (17:17)
[2024-02-03 21:07] LABS: Blood Urea Nitrogen 16 mg/dl (7-17); Calcium 9.2 mg/dl (8.4-10.2); Carbon Dioxide 29 mmol/L (22-30); Estimated Creatinine Clearance 61 ml/min; Glucose 125 mg/dl (70-99); eGFR > 60.00
[2024-02-03 21:27] LABS: Chloride 98 mmol/L (98-107); Potassium 3.3 mmol/L (3.5-5.1); Sodium 135 mmol/L (135-145)
--- NOTE | 2024-02-03 21:41 | PTCARENOTE ---
Pt grossly incontinent of bladder. Daughter states pt has trouble urinating while in the hospital and asked this RN if pt can be bladder scanned. Pt bladder scanned for 586 mls. BOOGIE Dorado notified, BS/SC orders placed. 15F catheter used to
straight cath pt. 650 mls of clear yellow urine out.
--- NOTE | 2024-02-03 21:44 | PTCARENOTE ---
Addendum entered by Criselda Craven RN 02/04/24 03:53:
Pt bladder scanned for 546mls. Pt grossly incontinent and cleaned up by staff. Pt sc'd w/ 15F catheter for 575mls of clear yellow urine at 0340. Plan of care ongoing.
Original Note:
Pt grossly incontinent of bladder. Daughter states pt has trouble urinating while in the hospital and asked this RN if pt can be bladder scanned. Pt bladder scanned for 586 mls. BOOGIE Dorado notified, BS/SC orders placed. 15F catheter used to
straight cath pt. 650 mls of clear yellow urine out at 2024. Pt w/o any complaints. Call montesinos within reach and plan of care ongoing.
[2024-02-03 23:00] VITALS: BP 156/79
[2024-02-04] MEDS: UNASYN IV ×5 (00:50→23:08)
[2024-02-04] MEDS: NORCO 5/325 1 TABLET PO ×5 (00:51→23:08)
--- NOTE | 2024-02-04 07:39 | W.PN.UPDATE ---
Update Note
Progress Note Update
Ms. Thompson is POD3 following her left hand/wrist I&D. She is resting comfortably in bed this morning. She reports the symptoms in her hand have continued to gradually improve with time.
Directed exam of the left hand reveals dressings clean, dry and intact. Generalized edema about the left hand. Patient able to wiggle fingers, but motion limited secondary to swelling. Sensation intact to light touch. Capillary refill <2 seconds.
VSS, afebrile.
Intra-operative culture reveals many WBCs, no organisms seen. No growth on culture thus far.
POD #3 s/p left hand/wrist I&D.
- Continue dressing changes as needed.
- Encourage movement of fingers/making fist to tolerance. Appreciate assistance from PT/OT.
- May resume warm compresses TID.
- Continue with pain management as needed
- Continue to follow OR cultures - no growth, gram stain with WBC, no organisms seen.
- Continue antibiotics per ID recommendations, currently on Unasyn.
- Orthopedics will continue to follow along.
[2024-02-04 07:49] VITALS: BP 159/82
[2024-02-04] MEDS: CRESTOR 40 MG PO (07:58)
[2024-02-04] MEDS: PLAVIX 75 MG PO (07:58)
[2024-02-04] MEDS: MAGNESIUM OXIDE 500 MG PO ×2 (07:58→21:49)
[2024-02-04] MEDS: ABILIFY 2.5 MG PO (07:59)
[2024-02-04] MEDS: ARIMIDEX 1 MG PO (07:59)
--- NOTE | 2024-02-04 10:32 | W.PN.HOSP.TC ---
Today's Communication/Plan
-
dc planning
Assessment / Plan
Assessment / Plan
Physical Exam
-
General: No Apparent Distress
HEENT: Normocephalic
Respiratory: Negative Wheezes
Cardiac: Regular Rhythm
GI: Soft. Nontender
Musculoskeletal: Left hand/wrist clean dressing
Neuro: Awake, she followed commands.
Psych: No agitation
Assessment:
# Acute urinary retention
will try Flomax
c/w bladder scan protocol
# Left wrist septic arthritis and left hand infection / Left wrist cellulitis status post cat scratch, concerning for cat scratch disease
Sepsis POA (fever, tachycardia) POA
- Xray: no acute pathology
- MRI: Focal mild tenosynovitis of the flexor pollicis longus and flexor digitorum profundus tendons within the distal forearm. Mild to moderate diffuse subcutaneous edema throughout the dorsal wrist and hand suggesting cellulitis. No loculated
fluid collections.
- S/P left hand I&D, left wrist arthrotomy/incision and debridement by Dr. Culver on 01/31, no complications reported.
-Continue with Unasyn and Zithromax. Afebrile. WBC normal.
- pain control and elevate LUE.
-Blood culture no growth. negative OR culture
-Appreciate ID and orthopedic help
#Toxic metabolic encephalopathy TME likely related to above process
Subacute change in mental status x 1 month
She seems to go back to her baseline
- previously evaluated at [facility]
- outpatient CT/MRI negative per daughter, no etiology of change in mental status found; there was brief concern for PD but not corroborated on 2nd opinion. Briefly on Sinemet without any improvement. Also noted diagnosed of Dementia from OP
Neurology. Requested reviewed with Neurology.
- [place] MRI: No acute intracranial abnormality noted. Chronic senescent changes.
- metabolic workup negative
- infectious workup aside from cat scratch disease negative
- UDS + opiates/benzos but she received these in hospital. No other positive findings
-Appreciate neurology help
#Gait Impairment, acute on chronic
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
- [place] MRI: No acute intracranial abnormality noted. Chronic senescent changes.
- continue Statin
- hold Plavix for OR
- Gait dysfunction related to advanced arthritis as well - increased Tylenol to standing
- PT/OT - SNF recommended. Discussed with PT,
#Anxiety - continue Abilify and prn Ativan
#Hypokalemia -order potassium chloride
#Hx of breast cancer
- continue Anastrazole
# Hypomagnesemia. Magnesium 1.7. Given oral magnesium
# Obesity, BMI 40
DVT ppx: Lovenox
Code: Full
Total time spent to see the patient, examine the patient on the floor, review data and lab results, discuss treatment plan with patient, family, PT, nursing staff around 55 minutes
Anticipated Discharge: Within 24 hours
Subjective/Interval History
-
Date of Service: February 04, 2024
urinary retention
Objective Data
-
Vital Signs:
Vital Signs
Temp Pulse Resp BP Pulse Ox
98.1 F 88 18 159/82 96
02/04/24 07:49 02/04/24 07:49 02/04/24 07:49 02/04/24 07:49 02/04/24 07:49
I&O
02/03/24 02/04/24 02/05/24
06:59 06:59 06:59
Intake Total 1440 / 1440 720 / 720
Output Total 1225 / 1225
Balance 1440 / 1440 -505 / -505
--- NOTE | 2024-02-04 13:22 | W.PN.ID1 ---
Date of Service
Date of Service: February 04, 2024
Today's Communication
Continue Unasyn.
Assessment / Plan
# Fever - resolved
# Cat-scratch cellulitis of left hand/wrist
# Tenosynovitis
-Blood cultures x 2 neg to date
- s/p Tdap 01/30/24
-s/p Z-pamela to prevent potential complications from cat-scratch
- MRI left hand/wrist: tenosynovitis of the flexor pollicis longus and flexor digitorum profundus tendons
- 02/01 OR I+D + purulent material, OR GS: many wbc, cx neg to date
-Continue Unasyn 3g IV q6 (d6) for cellulitis/tenosynovitis.
# Additional Past Medical History:
Multiple sclerosis
Sjogren's syndrome
Neuropathy
Hypertension
Dyslipidemia
CVA
Arthritis
Spinal stenosis
Hx breast CA
Class III obesity BMI 42
Bilateral knee replacement
Chief Complaint
-: Cellulitis
Subjective / Review of Systems
Hand/wrist less painful
Vital Signs / Physical Exam
Vital Signs
Vital Signs
Temp Pulse Resp BP Pulse Ox
98.1 F 88 18 159/82 96
02/04/24 07:49 02/04/24 07:49 02/04/24 07:49 02/04/24 07:49 02/04/24 07:49
Physical Exam
Constitutional: No Acute Distress and Comfortable
Gastrointestinal: Soft, Non Tender and Non Distended
Objective Data
Lab Data
Lab Results
02/02/24 07:14
02/03/24 20:33
ESR 35 mm/hour (0-20) H 01/30/24 10:08
Estimated Creat Clear 61 ml/min 02/03/24 20:33
Lactic Acid Cancelled 01/30/24 07:45
Total Bilirubin 2.0 mg/dl (0.2-1.3) H 01/30/24 03:28
AST 28 U/L (14-36) 01/30/24 03:28
ALT 24 U/L (0-35) 01/30/24 03:28
Alkaline Phosphatase 53 U/L (38-126) 01/30/24 03:28
C-Reactive Protein 78.10 mg/L (0.0-10.00) H 01/30/24 10:08
Most recent labs reviewed.
Micro Results:
02/01/24 10:45 Wound Culture - Preliminary
Surgical Wound No growth
Gram Stain - Preliminary
01/30/24 06:20 Blood Culture - Final
Blood/Venous No Growth - Final Report
01/30/24 06:20 Blood Culture - Final
Blood/Venous No Growth - Final Report
02/01/24 10:45 Anaerobic Culture - Preliminary
Hand - Left Culture pending. Anaerobic cultures are examined after 3
days incubation. Additional information to follow.
01/30/24 Wrist XRAY Left wrist: No acute fracture, malalignment, or radiopaque foreign body. Severe osteoarthritic changes first carpometacarpal joint. Widening of scapholunate interval compatible with prior soft tissue injury.
01/31/24 MRI brain wo: No acute intracranial abnormality noted. Chronic senescent changes.
01/31/24 MRI LUE: Focal mild tenosynovitis of the flexor pollicis longus and flexor digitorum profundus tendons within the distal forearm.Mild to moderate diffuse subcutaneous edema throughout the dorsal wrist and hand suggesting cellulitis. No
loculated fluid collections. Small carpus effusion. Small effusion of the distal radioulnar joint. No osteomyelitis.
--- NOTE | 2024-02-04 14:31 | CM ---
Case management following for d/c planning
Chart reviewed
Remains on IV antibiotics
Following wound cx
ID following
PT/OT recommending SNF - referrals sent in [facility]
Plan - anticipate SNF when medically stable
[2024-02-04 16:25] VITALS: BP 168/88
[2024-02-04] MEDS: LOVENOX 40 MG SC (17:24)
[2024-02-04] MEDS: FLOMAX 0.400000000000000022 MG PO (18:12)
[2024-02-04 23:00] VITALS: BP 148/83
[2024-02-04] MEDS: FLUSH (NSS) 2 FLUSH IV (23:08)
[2024-02-05] MEDS: UNASYN IV ×4 (05:38→18:14)
[2024-02-05] MEDS: NORCO 5/325 1 TABLET PO ×3 (05:38→17:24)
[2024-02-05] MEDS: FLUSH (NSS) 1 FLUSH IV (05:39)
--- NOTE | 2024-02-05 07:40 | W.PN.ORTHO ---
Today's Communication / Plan
-
Warm soak TID
Dressing in place
Elevation to control pain
Cultures still pendin
ABX per ID
F/up for wound check in 5 days
Assessment
.
Distal Motor Intact: Yes
Dressing:
Clean, dry and intact.
Plan
.
Surgery / Date: 02/01/24 left hand/wrist I&D - Dr. Culver
Activity:
Out of bed.
PT/OT
Subjective
.
.:
Patient resting comfortably.
Vital Signs and Labs
.
Vital Signs and Labs:
Lab Results
02/02/24 07:14
02/03/24 20:33
Temp Pulse Resp BP Pulse Ox
98.1 F 84 12 148/83 97
02/04/24 23:00 02/04/24 23:00 02/04/24 23:00 02/04/24 23:00 02/04/24 23:00
[2024-02-05 07:45] VITALS: BP 178/91
[2024-02-05] MEDS: MAGNESIUM OXIDE 500 MG PO (08:15)
[2024-02-05] MEDS: CRESTOR 40 MG PO (08:15)
[2024-02-05] MEDS: PLAVIX 75 MG PO (08:16)
[2024-02-05] MEDS: ARIMIDEX 1 MG PO (08:16)
[2024-02-05] MEDS: FLOMAX 0.400000000000000022 MG PO (08:16)
[2024-02-05] MEDS: DESENEX/MITRAZOL/ZEASORB 1 APPLIC TOPICAL (08:16)
[2024-02-05] MEDS: ABILIFY 2.5 MG PO (08:16)
--- NOTE | 2024-02-05 11:24 | W.PN.ID1 ---
Date of Service
Date of Service: February 05, 2024
Today's Communication
At time of discharge, transition to Augmentin 875mg po bid through 02/26/24 (total 4 week course)
Assessment / Plan
# Fever - resolved
# Cat-scratch cellulitis of left hand/wrist
# Tenosynovitis
-Blood cultures x 2 neg to date
- s/p Tdap 01/30/24
-s/p Z-pamela to prevent potential complications from cat-scratch
- MRI left hand/wrist: tenosynovitis of the flexor pollicis longus and flexor digitorum profundus tendons
- 02/01 OR I+D + purulent material, OR GS: many wbc, cx remains neg to date
-Continue Unasyn 3g IV q6 (d7) for cellulitis/tenosynovitis.
At time of discharge, transition to Augmentin 875mg po bid through 02/26/24 (total 4 week course)
- Follow-up with Dr. Beckham in 2-3 weeks.
# Additional Past Medical History:
Multiple sclerosis
Sjogren's syndrome
Neuropathy
Hypertension
Dyslipidemia
CVA
Arthritis
Spinal stenosis
Hx breast CA
Class III obesity BMI 42
Bilateral knee replacement
Chief Complaint
-: Cellulitis
Subjective / Review of Systems
Wrist pain continues to improve.
Vital Signs / Physical Exam
Vital Signs
Vital Signs
Temp Pulse Resp BP Pulse Ox
97.9 F 91 18 178/91 95
02/05/24 07:45 02/05/24 07:45 02/05/24 07:45 02/05/24 07:45 02/05/24 07:45
Physical Exam
Constitutional: No Acute Distress
Wound: Other (left hand decrease edema; dressing dry)
Objective Data
Lab Data
Lab Results
02/02/24 07:14
02/03/24 20:33
ESR 35 mm/hour (0-20) H 01/30/24 10:08
Estimated Creat Clear 61 ml/min 02/03/24 20:33
Lactic Acid Cancelled 01/30/24 07:45
Total Bilirubin 2.0 mg/dl (0.2-1.3) H 01/30/24 03:28
AST 28 U/L (14-36) 01/30/24 03:28
ALT 24 U/L (0-35) 01/30/24 03:28
Alkaline Phosphatase 53 U/L (38-126) 01/30/24 03:28
C-Reactive Protein 78.10 mg/L (0.0-10.00) H 01/30/24 10:08
Most recent labs reviewed.
Micro Results:
02/01/24 10:45 Anaerobic Culture - Preliminary
Hand - Left Culture pending. Anaerobic cultures are examined after 3
days incubation. Additional information to follow.
02/01/24 10:45 Wound Culture - Preliminary
Surgical Wound No growth
Gram Stain - Preliminary
01/30/24 06:20 Blood Culture - Final
Blood/Venous No Growth - Final Report
01/30/24 06:20 Blood Culture - Final
Blood/Venous No Growth - Final Report
01/30/24 Wrist XRAY Left wrist: No acute fracture, malalignment, or radiopaque foreign body. Severe osteoarthritic changes first carpometacarpal joint. Widening of scapholunate interval compatible with prior soft tissue injury.
01/31/24 MRI brain wo: No acute intracranial abnormality noted. Chronic senescent changes.
01/31/24 MRI LUE: Focal mild tenosynovitis of the flexor pollicis longus and flexor digitorum profundus tendons within the distal forearm.Mild to moderate diffuse subcutaneous edema throughout the dorsal wrist and hand suggesting cellulitis. No
loculated fluid collections. Small carpus effusion. Small effusion of the distal radioulnar joint. No osteomyelitis.
Care Review
Plan reviewed with: Physician (Dr. Grace)
--- NOTE | 2024-02-05 14:01 | CM ---
Addendum entered by Lindsay Stacy 02/05/24 15:31:
Transport arranged for 1800
Marlene at [facility] notified of transport time
Called pts daughter Dana - LM on VM - regarding transfer time
Addendum entered by Lindsay Stacy 02/05/24 14:50:
Plan - [facility]
R - [phone]
- [phone]
Original Note:
Case management following for discharge planning
Pt medically ready for discharge
Spoke with Bet at [facility] - can accept today
Spoke with pts daughter Dana - agrees with pt going to [facility]
Plan - transfer to [facility]
--- NOTE | 2024-02-05 14:28 | W.DCSUMMARY ---
Discharge Summary
Discharge Data
Date of Admission: 01/30/24
Date of Discharge: 02/05/24
-
Pending Results: No
Hospital Course
79 years old female presented with redness, swelling and pain of the left wrist. Patient had progressive pain swelling of the left wrist after got scratched/ bitten by her cat. Patient presented initially to the emergency room and was offered to
be admitted for intravenous antibiotic but declined. She took oral Keflex at home but did not help. Patient was diagnosed with left lower wrist cellulitis/cat scratch disease and was admitted to the hospital. She met the criteria of sepsis. She
had confusion and was found to have toxic metabolic encephalopathy on underlying possible cognitive impairment/vascular dementia. Imaging studies of the wrist showed focal tenosynovitis. Patient was taken to the operating room for incision and
drainage by Dr. Culver. No complications reported. She was followed by orthopedic doctor and infectious diseases doctor. She received intravenous antibiotics. Blood culture did not show any growth. OR culture did not show any growth. Patient was
evaluated by neurology for confusion. Brain imaging study did not show acute intracranial abnormality. Neurologist recommended to limit use of benzodiazepine/opioid as possible, with possibility of underlying vascular dementia. Patient remained
hemodynamically stable. She developed acute urinary retention was started on Flomax and bladder scan protocol. Patient was evaluated by physical therapy and recommended custodial facility placement. Case management was involved in discharge
planning. Patient was discharged in a stable condition.
Physical Exam
-
General: No Apparent Distress
HEENT: Normocephalic
Respiratory: Negative Wheezes
Cardiac: Regular Rhythm
GI: Soft. Nontender
Musculoskeletal: Left hand/wrist clean dressing. Clean sutures
Neuro: Awake, forgetful, she followed commands.
Psych: No agitation
Total discharge time spent to see the patient, examine the patient on the floor, review data and lab results, discuss discharge plan with patient, nursing staff around 65 minutes daughter, case operator, consultants
Discharge Plan
-
Patient Disposition: Longterm/SNF
Discharge Diagnosis/Procedures: Left wrist Tenosynovitis/left wrist septic arthritis status post I&D and intravenous antibiotics
Cat- Scratch cellulitis of the left hand/wrist
Toxic metabolic encephalopathy on underlying cognitive impairment/dementia
Gait dysfunction
Acute urinary retention, started on Flomax. Bladder scan twice to 3 times daily
Diet: As tolerated
Wound Care: Left wrist: Warm soak TID
Dressing in place
Elevation to control pain
Referrals:
Taye Culver MD [Active] - in less than 1 week
Myrna Evans PA-C [Non-Admitting Privileges] -
Harriett Beckham MD [Active] - in two to three weeks
Prescriptions:
New
tamsulosin 0.4 mg Capsule
0.4 mg PO DAILY Qty: 30 0RF
polyethylene glycol 3350 [HealthyLax] 17 gram Powder In Packet
17 g PO DAILYPRN PRN (Reason: constipation) Qty: 14 0RF
hydrocodone-acetaminophen 5-325 mg Tablet
1 tab PO Q4HPRN PRN (Reason: mod to severe pain) Qty: 10 0RF
Lactobac/Bifidobac [Visbiome]
2 cap PO DAILY Qty: 60 0RF
amoxicillin-pot clavulanate 875-125 mg tablet
1 tab PO BID Qty: 42 0RF
Continued
aripiprazole 5 mg Tablet
2.5 mg PO DAILY
rosuvastatin 40 mg Tablet
40 mg PO DAILY
clopidogrel 75 mg Tablet
75 mg PO DAILY
Edarbyclor 40-25 mg Tablet
1 tab PO DAILY
anastrozole 1 mg Tablet
1 mg PO DAILY
calcium carbonate 500 mg calcium (1,250 mg) Tablet
500 mg PO DAILY
ascorbic acid (vitamin C) [Vitamin C] 500 mg Tablet
500 mg PO DAILY
cholecalciferol (vitamin D3) [Vitamin D3] 25 mcg (1,000 unit) Tablet
25 mcg PO DAILY
magnesium oxide 400 mg magnesium Tablet
400 mg PO DAILY
Discontinued
diazepam 5 mg Tablet
5 mg PO HS
alpha lipoic acid 50 mg Tablet
50 mg PO DAILY
Discharge Orders:
Discharge Patient (As Directed); Ordered 02/05/24
Ordered By: Mary Grace
Discharge Date and Time
Print Language: THAI
[2024-02-05 15:39] VITALS: BP 180/89
[2024-02-05] MEDS: LOVENOX 40 MG SC (17:24)
== END 2024-02-05 18:17 | DRG 853 ==
LOC: 3 WEST ACU 06:36
PROVIDERS: Internal Medicine; ADMITTING PHYSICIAN Student in an Organized Health Care Education/Training Program; ATTENDING PHYSICIAN Internal Medicine; CONSULT PHYSICIAN Orthopaedic Surgery; CONSULT PHYSICIAN Student in an Organized Health Care Education/Training Program; EMERGENCY PHYSICIAN Student in an Organized Health Care Education/Training Program; OTHER PHYSICIAN Internal Medicine Infectious Disease
PROC: 0RBP0ZZ Excision of Left Wrist Joint, Open Approach (ICD-10-PCS; 2024-02-01)
DX: A41.9 Sepsis, unspecified organism (principal); G92.8 Other toxic encephalopathy; L03.114 Cellulitis of left upper limb; Z68.41 Body mass index [BMI] 40.0-44.9, adult; M00.832 Arthritis due to other bacteria, left wrist; F01.54 Vascular dementia, unspecified severity, with anxiety; M35.00 Sjogren syndrome, unspecified; E66.01 Morbid (severe) obesity due to excess calories; I10 Essential (primary) hypertension; G62.9 Polyneuropathy, unspecified; M19.90 Unspecified osteoarthritis, unspecified site; F41.9 Anxiety disorder, unspecified; E87.6 Hypokalemia; R26.9 Unspecified abnormalities of gait and mobility; M65.832 Other synovitis and tenosynovitis, left forearm; E78.00 Pure hypercholesterolemia, unspecified; R33.9 Retention of urine, unspecified; E83.42 Hypomagnesemia; G35 Multiple sclerosis; W55.03XA Scratched by cat, initial encounter; Y93.89 Activity, other specified; Y92.9 Unspecified place or not applicable; Z60.2 Problems related to living alone; Z96.653 Presence of artificial knee joint, bilateral; Z79.02 Long term (current) use of antithrombotics/antiplatelets; Z79.811 Long term (current) use of aromatase inhibitors; Z85.3 Personal history of malignant neoplasm of breast; Z87.891 Personal history of nicotine dependence; I69.319 Unspecified symptoms and signs involving cognitive functions following cerebral infarction
CPT/HCPCS: 70450; 70551; 73110; 73218; 80048; 80053; 80306; 80307; 81003; 81015; 82140; 82607; 82746; 83605; 83735; 84145; 84443; 85025; 85027; 85652; 86140; 86611; 86780; 87040; 87070; 87075; 87205; 96361; 96365; 97163; 97167; 97530; 97535; 99285

== ENCOUNTER → 2024-02-10 11:38 | Outpatient (REF) | payer OTHER, MEDICARE, SELFPAY ==
[2024-02-10 13:08] LABS: Hematocrit 32.2 % (37.0-47.0); Hemoglobin 10.8 g/dL (12.0-16.0); Mean Corp Hgb Conc. 33.5 g/dL (33.0-37.0); Mean Corpuscular Hgb 29.8 pg (27.0-31.0); Mean Platelet Volume 10.9 fL (7.4-10.4); Platelet Count 257 10^3/uL (130-400); Red Blood Cell Count 3.62 10^6/uL (4.20-5.40); Red Cell Dist. Width 13.9 % (11.5-14.5); White Blood Cell Count 6.9 10^3/uL (4.8-10.8)
[2024-02-10 13:37] LABS: Urine Albumin Negative (Neg - Trace); Urine Bilirubin Negative (Negative); Urine Character Clear (Clear); Urine Color Yellow; Urine Glucose Negative (Negative); Urine Ketone Negative (Negative); Urine Leukocyte Trace (Negative); Urine Nitrite Negative (Negative); Urine Occult Blood Trace (Negative); Urine Urobilinogen Negative (Neg - 1+)
[2024-02-10 13:42] LABS: Calcium 9.7 mg/dl (8.4-10.2); Carbon Dioxide 25 mmol/L (22-30); eGFR > 60.00
[2024-02-10 13:56] LABS: Urine Mucus Few
[2024-02-10 13:56] LABS: Blood Urea Nitrogen 16 mg/dl (7-17); Chloride 98 mmol/L (98-107); Glucose 93 mg/dl (70-99); Potassium 3.7 mmol/L (3.5-5.1); Sodium 134 mmol/L (135-145)
[2024-02-10 14:01] LABS: Urine Bacteria Few (Negative); Urine Red Blood Cell 0-2 /HPF (0-2)
== END ==
LOC: OLABP 11:38
PROVIDERS: ATTENDING PHYSICIAN Student in an Organized Health Care Education/Training Program
DX: E87.6 Hypokalemia (principal); M62.81 Muscle weakness (generalized); G92.8 Other toxic encephalopathy; L03.114 Cellulitis of left upper limb; M35.00 Sjogren syndrome, unspecified; E83.42 Hypomagnesemia; Z86.73 Personal history of transient ischemic attack (TIA), and cerebral infarction without residual deficits; A41.9 Sepsis, unspecified organism
CPT/HCPCS: 36415; 80048; 81003; 81015; 85027; 87077; 87086; 87186

== ENCOUNTER 2024-03-04 18:10 | Observation (INO) | payer MEDICARE, OTHER, SELFPAY ==
[2024-03-04] VITALS (8 sets, daily range): BP systolic 103–144; BP diastolic 52–70
[2024-03-04 16:02] LABS: % Basophils 0.3 % (0-2); % Immature Granulocytes 0.6 % (0-0.5); % Lymphocytes 8.2 % (20.5-51.1); % Monocytes 5.2 % (1.7-9.3); % Neutrophils 85.7 % (42.2-75.2); Absolute Immature Granulocytes 0.1 10^3/uL (0-0.05); Absolute Lymphocytes 0.7 10^3/uL (1.2-3.4); Absolute Monocytes 0.5 10^3/uL (0.1-0.6); Absolute Neutrophils 7.6 10^3/uL (1.4-6.5); Hematocrit 31.9 % (37.0-47.0); Hemoglobin 11.6 g/dL (12.0-16.0); Mean Corp Hgb Conc. 36.4 g/dL (33.0-37.0); Mean Corpuscular Hgb 30.9 pg (27.0-31.0); Mean Corpuscular Volume 84.8 fL (81.0-99.0); Mean Platelet Volume 10.9 fL (7.4-10.4); Nucleated Red Blood Cells % 0 %; Platelet Count 232 10^3/uL (130-400); Red Blood Cell Count 3.76 10^6/uL (4.20-5.40); Red Cell Dist. Width 13.8 % (11.5-14.5); White Blood Cell Count 8.9 10^3/uL (4.8-10.8)
[2024-03-04 16:16] LABS: ALT (SGPT) 32 U/L (0-35); AST (SGOT) 27 U/L (14-36); Albumin 4.4 g/dl (3.5-5.0); Alkaline Phosphatase 68 U/L (38-126); Blood Urea Nitrogen 27 mg/dl (7-17); Calcium 10.5 mg/dl (8.4-10.2); Carbon Dioxide 30 mmol/L (22-30); Chloride 93 mmol/L (98-107); Glucose 123 mg/dl (70-99); Potassium 3.9 mmol/L (3.5-5.1); Sodium 132 mmol/L (135-145); Total Bilirubin 1.6 mg/dl (0.2-1.3); Total Protein 7.1 g/dl (6.3-8.2); eGFR 42.35
[2024-03-04 16:27] LABS: Troponin I < 0.012 ng/ml
--- NOTE | 2024-03-04 16:47 | ED.GENMED ---
History of Present Illness
General
Chief Complaint: Fatigue
Source: patient, family (Daughter), ambulance crew and residential
Exam Limitations: none
Time Seen by Provider: 03/04/24 15:05
Nursing documentation reviewed up to this point in time: agreed with
History of Present Illness
History of Present Illness:
79-year-old female with a past medical history of MS, hypertension, Sjogren's syndrome, chronic pain who presents to the emergency room from [facility] for evaluation after apparently episode of unresponsiveness. History is somewhat difficult as
patient reports that she is fine and did not have any sort of unresponsiveness. According to the staff at [facility] they did not witness unresponsiveness they said patient appeared to be breathing and acting normally�apparently is not the most
vigorous at baseline. Daughter insist that she went into see her mother and that mother was completely unresponsive although she seemed to be breathing. EMS called to the scene to bring her to the hospital. Patient says she has no complaints�she
denies headache, chest pain, back pain, abdominal pain. Denies feeling nausea. She denies any recent fevers. According to staff at [facility] she has been at her baseline health recently. Review of her medication list does show that she is on
multiple medications which could lead to sedation including both Valium and oxycodone (was given oxycodone apparently shortly before onset), Lexapro, Abilify. Daughter says that she thinks her mother is slightly more confused than usual but patient
insist that she feels fine and appears to be awake alert here. Review of patient's chart shows that she had a recent admission 01/29 until 02/04 for infection in the left wrist and during this hospitalization she had confusion and neurology
consultation, thought to have some underlying vascular dementia and polypharmacy.
Past History
Past History
ED Past Medical History: Hypercholesterolemia, Other (MS) and Other (Sjogren's syndrome)
ED Past Surgical History: Orthopedic
Social History
Tobacco: Non-smoker
Living: with family
Employment: Retired
Review of Systems
Review of Systems
All Other Systems: ROS reviewed and negative except as documented in HPI and ROS
Constitutional: Denies fever
Respiratory: Denies cough or trouble breathing
Cardiac: Denies chest pain or palpitations
ABD/GI: Denies abdominal pain, nausea, vomiting or diarrhea
: Denies dysuria or flank pain
Neurological: Reports other (Change in mental status/unresponsiveness); Denies dizzy, headache, weakness or numbness
Phy Exam
Physical Exam
Physical Exam:
General: Laying in bed, eyes closed but wakes to voice, oriented x3; no acute distress
Head: Normocephalic, atraumatic
Eyes: Conjunctiva normal, EOMI, pupils equal round and reactive to light bilaterally
Throat: Airway intact, handling secretions
Neck: Trachea midline, supple without meningismus
Lungs: Clear to auscultation bilaterally, no wheezing, rales, rhonchi
Heart: Tachycardia with regular rhythm, no murmurs, gallops, or rubs
Abd: Soft, non distended, nontender with no masses
Neuro: Cranial nerves intact 2 through 12, speech fluid with no dysarthria or aphasia, no limb ataxia, motor and sensory function intact in all extremities
Extremities: Warm and well-perfused
Scores
Heart Failure Risk
Heart Failure Risk Score: Not Applicable
Heart Score for Chest Pain Patients
STEMI patient?: Not applicable
Withdrawal Assessment of Alcohol
Withdrawal Assessment Completed?: Not applicable
Course
Orders/Labs/Results
Orders:
Orders
03/04/24 13:36
Electrocardiogram (*1) Urgent
Reason for Study: Fatigue / Weakness
EKG- Treatment ONCE
03/04/24 15:11
CT Head W/o Iv Contrast Urgent
Comment:
Reason For Exam: change in mentation
03/04/24 15:47
Complete Blood Count/With Diff Urgent
Comprehensive Metabolic Panel Urgent
Troponin I Urgent
03/04/24 16:31
Urinalysis Reflex To Culture Urgent
Date Specimen was Collected: 03/04/24
Time Specimen was Collected: 16:33
Abnormal Lab Results
03/04/24
15:47
RBC 3.76 L 10^6/uL
(4.20-5.40)
Hgb 11.6 L g/dL
(12.0-16.0)
Hct 31.9 L %
(37.0-47.0)
MPV 10.9 H fL
(7.4-10.4)
Abs Immat Gran (auto) 0.1 H 10^3/uL
(0-0.05)
Absolute Neuts (auto) 7.6 H 10^3/uL
(1.4-6.5)
Absolute Lymphs (auto) 0.7 L 10^3/uL
(1.2-3.4)
Immature Gran % 0.6 H %
(0-0.5)
Neutrophils % 85.7 H %
(42.2-75.2)
Lymphocytes % 8.2 L %
(20.5-51.1)
Sodium 132 L mmol/L
(135-145)
Chloride 93 L mmol/L
(98-107)
BUN 27 H mg/dl
(7-17)
Creatinine 1.3 H mg/dL
(0.6-1.0)
Glucose 123 H mg/dl
(70-99)
Calcium 10.5 H mg/dl
(8.4-10.2)
Total Bilirubin 1.6 H mg/dl
(0.2-1.3)
03/04/24 15:47
03/04/24 15:47
Vital Signs
Initial and Last Documented VS:
Initial Vital Signs
Temp Pulse Resp BP Pulse Ox
36.4 C 108 16 117/69 97
03/04/24 13:37 03/04/24 13:37 03/04/24 13:37 03/04/24 13:37 03/04/24 13:37
Last Documented Vital Signs
Temp Pulse Resp BP Pulse Ox
36.4 C 90 19 121/58 95
03/04/24 13:37 03/04/24 14:45 03/04/24 14:45 03/04/24 14:00 03/04/24 13:38
MDM/Problems Addressed
Differential Diagnosis Includes:
Seizure, polypharmacy, delirium; duration of episode coupled with patient's appearance here go strongly against this being cardiac
MDM/Problems Addressed:
79-year-old female presents for evaluation after apparently an episode of unresponsiveness�history is somewhat murky as patient denies an episode, staff at her residential deny any issue but family is quite insistent that she was unresponsive for
about 10 minutes. Tachycardic but otherwise normal vitals. Exam as above. Will check labs including a CBC and a CMP. Check troponin. Check CT head. Check urinalysis. Monitor closely reassess after the above.
I spoke directly with the residential staff they report that they are unwilling to accept patient back and apparently case management has already been contacted�case packer says that the family does not even wish to send patient back to [facility].
Pending medical evaluation she will need placement in an alternate facility.
Initial labs reviewed: CBC shows marginal anemia which is stable. CMP shows mild ELIZA with a creatinine of 1.3 from baseline of 0.9. Troponin is negative. Awaiting results of CT head. Will plan for admission for observation and ultimately
placement pending CT.
*Radiology
Radiology exam reviewed: radiology read reviewed
*Pulse Oximetry
Patient hypoxic: no
*EKG
Interpreted by ED Provider?: Yes
Heart Rate: 107
Rate: tachycardiac
Rhythm: sinus and sinus tachycardia
[place]: normal axis
Interval: normal interval
QRS Pattern: normal QRS
Ischemia: non-specific ST changes
*Critical Care Note
Total Time (30-74mins, 75-104mins- exclusive of procedures): Not Applicable
Data Reviewed
Review of Other/Old Records Reveals: Labs, Records and Discharge Summary
Source: patient, records, family and residential
Patient Management
Social determinants of health affecting care: Living situation
Discussion with other providers: Hospitalist (Discussed with hospitalist), custodial staff (Discussed directly with residential staff) and Other (Discussed with case packer)
Escalation/DeEscalation of care consider admission/obs:
Admission indicated
ED Attending Note
-
Portions of this chart may have been created with voice recognition software.� Occasional wrong word or��sound alike� substitutions may have occurred due to the inherent limitations of voice recognition software.
Discharge Plan
Departure
Admit to doctor: Sheu
Presentation/result/management discussed w/ accepting MD/DO: Hospitalist
Discharge Problem:
Delirium of mixed origin
Prescriptions:
No Action
aripiprazole 5 mg Tablet
2.5 mg PO DAILY
rosuvastatin 40 mg Tablet
40 mg PO HS
clopidogrel 75 mg Tablet
75 mg PO DAILY
Edarbyclor 40-25 mg Tablet
1 tab PO DAILY
anastrozole 1 mg Tablet
1 mg PO DAILY
calcium carbonate 500 mg calcium (1,250 mg) Tablet
500 mg PO DAILY
cholecalciferol (vitamin D3) [Vitamin D3] 25 mcg (1,000 unit) Tablet
25 mcg PO DAILY
magnesium oxide 400 mg magnesium Tablet
400 mg PO DAILY
polyethylene glycol 3350 [HealthyLax] 17 gram Powder In Packet
17 g PO DAILYPRN PRN (Reason: constipation) Qty: 14 0RF
acetaminophen [Tylenol] 325 mg Tablet
650 mg PO Q4HPRN MDD 3000 mg PRN (Reason: mild pain/fever >100)
Theragen Tablet
1 tab PO DAILY
magnesium hydroxide [Milk of Magnesia] 400 mg/5 mL Suspension
30 ml PO Q96H PRN (Reason: day 4 no bm)
bisacodyl [Dulcolax (bisacodyl)] 10 mg Suppository
10 mg MT DAILYPRN PRN (Reason: day 5 no bm, mom ineffective)
Fleet Enema 19-7 gram/118 mL Enema
118 ml MT DAILYPRN PRN (Reason: day 6 no bm, dulcolax ineffective)
diazepam [Valium] 5 mg Tablet
5 mg PO HS
oxycodone 5 mg Tablet
5 mg PO Q8HPRN PRN (Reason: severe pain)
escitalopram oxalate [Lexapro] 5 mg Tablet
5 mg PO HS
Visbiome 112.5 billion cell Capsule
1 cap PO DAILY
naloxone [Narcan] 4 mg/actuation [place],Non-Aerosol
1 spray INTRANASAL Q3MPRN PRN (Reason: opioid overdose)
Referrals:
NONE,* [Family Provider] -
Interventions
Interventions:
*Risk Screen - Suicide Last Done: 03/04/24 13:37
*General Assessment Last Done: 03/04/24 13:37
*Neglect/Abuse Screening Last Done: 03/04/24 13:37
*ED COVID-19 Vaccine History Last Done: 03/04/24 13:37
Discharge Date and Time
Print Language: NEPALI
--- NOTE | 2024-03-04 17:09 | CM ---
Addendum entered by Madison Bunn RN 03/04/24 17:13:
CM director aware of difficulties with placement efforts.
Original Note:
CM was consulted for nursing placement. CRISTIN was made aware that [facility] has refused to readmit patient. CM TT'd Marlene Rivera at [facility] to confirm that patient has exhausted all of their medicare days. CM is awaiting response.
--- NOTE | 2024-03-04 17:24 | HPS.HSE ---
Family Physician
-
Family Physician: * NONE
Chief Complaint
-
unresponsiveness
History of Present Illness
79-year-old female with a past medical history of MS, hypertension, Sjogren's syndrome, chronic pain who presents to the emergency room from [facility] for evaluation after apparently episode of unresponsiveness. patient stated she did not have any
sort of unresponsiveness. patient denied RAMIREZ, dizzy or syncopal episode. denied fever, chills, chest pain,sob. denied abdominal pain, n,v,d. denied dysuria or hematuria.she had a recent admission 01/29 until 02/04 for infection in the left wrist
admitting for further management.
Medical History
Past Medical History
Past Medical History: Reports Other
Additional Past Medical History:
htn
Estrogen syndrome
Multiple sclerosis
degenerative joint disease
Spinal stenosis
history of PVCs
Chronic right hip pain
Past Surgical History: Reports Other
Additional Past Surgical History:
Left knee replacement
Social History
Tobacco: Non-smoker
Alcohol: None
Drug: None
Living: Assisted
Family History
Family History: Not pertinent
Allergies / Home Medications
Allergies reflects when Allergies were last updated in [facility].
Home Medications with original date entered in [facility]
Allergy/Medication List:
Allergies
Allergy/AdvReac Type Severity Reaction Status Date / Time
Gadolinium-Containing Allergy Unknown Verified 01/30/24 02:19
Contrast Medi
Home Medications
anastrozole 1 mg tablet 1 mg PO DAILY Hormonal Agent 01/30/24
aripiprazole 5 mg tablet 2.5 mg PO DAILY Mental health 01/30/24
azilsartan medoxomil 40 mg-chlorthalidone 25 mg tablet (Edarbyclor) 1 tab PO DAILY Blood Pressure 01/30/24
calcium carbonate 500 mg PO DAILY Supplement 01/30/24
cholecalciferol (vitamin D3) 25 mcg (1,000 unit) tablet (Vitamin D3) 25 mcg PO DAILY Supplement 01/30/24
clopidogrel 75 mg tablet 75 mg PO DAILY Blood Clot Prevention/Tx 01/30/24
magnesium oxide 400 mg PO DAILY Electrolyte Repletion 01/30/24
rosuvastatin 40 mg tablet 40 mg PO HS High Cholesterol 01/30/24
polyethylene glycol 3350 17 gram oral powder packet (HealthyLax) 17 g PO DAILYPRN PRN constipation #14 ea 02/05/24
Lactobac no.2-Bifidobac no.1-S. thermo 112.5 billion cell capsule (Visbiome) 1 cap PO DAILY 03/04/24
acetaminophen 325 mg tablet (Tylenol) 650 mg PO Q4HPRN PRN mild pain/fever >100 03/04/24
bisacodyl 10 mg rectal suppository (Dulcolax (bisacodyl)) 10 mg OR DAILYPRN PRN day 5 no bm, mom ineffective 03/04/24
diazepam 5 mg tablet (Valium) 5 mg PO HS 03/04/24
escitalopram oxalate 5 mg tablet (Lexapro) 5 mg PO HS 03/04/24
magnesium hydroxide 400 mg/5 mL oral suspension (Milk of Magnesia) 30 ml PO Q96H PRN day 4 no bm 03/04/24
naloxone 4 mg/actuation nasal spray (Narcan) 1 spray intranasal Q3MPRN PRN opioid overdose 03/04/24
oxycodone 5 mg tablet 5 mg PO Q8HPRN PRN severe pain 03/04/24
sodium phosphates 19 gram-7 gram/118 mL enema (Fleet Enema) 118 ml OR DAILYPRN PRN day 6 no bm, dulcolax ineffective 03/04/24
therapeutic multivitamin 1 tab PO DAILY 03/04/24
Review of Systems
-
Constitutional: Reports No Symptoms
EENT: Reports No Symptoms
Respiratory: Reports No Symptoms
Cardiac: Reports No Symptoms
Abdomen/GI: Reports No Symptoms
: Reports No Symptoms
Musculoskeletal: Reports No Symptoms
Skin: Reports No Symptoms
Neurological: Reports No Symptoms
Endocrine: Reports No Symptoms
Hematologic/Lymphatic: Reports No Symptoms
Psych: Reports No Symptoms
Physical Exam
Vital Signs
Vital Signs
Temp Pulse Resp BP Pulse Ox
97.5 F 81 18 120/70 93
03/04/24 13:37 03/04/24 16:45 03/04/24 16:45 03/04/24 15:48 03/04/24 16:45
Physical Exam
General: Well Developed, Well Nourished and No Apparent Distress
HEENT: NormoCephalic, Moist mucous membranes and Atraumatic
Respiratory: Clear
Cardiac: S1/S2 and Regular Rhythm; No Murmur or Rub
GI: Soft, Non Tender, Non Distended and Normal Bowel Sounds; No Organomegaly
Rectal: Deferred by Provider
Musculoskeletal: No Clubbing, No Cyanosis and No Edema
Skin: Other (left wrist steri strips from recent cat scratch)
Neuro: AO x 3 and Nonfocal/grossly intact
Psych: Calm
Laboratory Results
-
03/04/24 15:47
03/04/24 15:47
Laboratory Results
Total Bilirubin 1.6 mg/dl (0.2-1.3) H 03/04/24 15:47
AST 27 U/L (14-36) 03/04/24 15:47
ALT 32 U/L (0-35) 03/04/24 15:47
Alkaline Phosphatase 68 U/L (38-126) 03/04/24 15:47
Troponin I < 0.012 ng/ml 03/04/24 15:47
Data Reviewed
-
Lab Data: Labs Reviewed by me
Impression/Plan
-
#unresponsiveness unclear cause
-at present patient is stable
-UA pending, patient denied any urinary symptoms
-head CT No acute intracranial abnormality noted. Chronic senescent changes.
-EKG with sinus tachycardia
-ctm
#hyponatremia/nathan likely from dehydration
-na 132, cr 1.3
-normal saline at 100c/hr
-bmp in am
#Anxiety - continue Abilify and prn Valium and citalopram
#chronic pain
-patient on oxycodone
#Hx of breast cancer
- continue Anastrazole
#essential htn
-Edarbyclor continued
#HLD
-statin continued
DVT ppx: heparin sq
Code: Full
patient admitted under observation service. patient medically cleared for discharge. CM consulted for ongoing disposition efforts.
--- NOTE | 2024-03-04 18:05 | W.PN.UPDATE ---
Update Note
Progress Note Update
I saw and examined the patient.
The EXTERN or PA's note was reviewed and I agree with the note.
Comment: Patient presents with reports of unresponsive episode. This was as per the patient's daughter's report. [facility] was unable to confirm that the patient had an unresponsive episode and whether this actually happened is in question. As per
discussion with case management in the ER attending [facility] has 'fired' the patient. They do not want the patient returning to their facility.
120/70, 81, 18, 97.5 F, 93% RA
NAD, awake and alert
RRR, normal S1/S2
CTAB
+BS/soft/NT/ND
CN2-12 intact
Lab Results
03/04/24
15:47
WBC 8.9
RBC 3.76 L
Hgb 11.6 L
Hct 31.9 L
MCV 84.8
MCH 30.9
MCHC 36.4
RDW 13.8
Plt Count 232
MPV 10.9 H
Abs Immat Gran (auto) 0.1 H
Absolute Neuts (auto) 7.6 H
Absolute Lymphs (auto) 0.7 L
Absolute Monos (auto) 0.5
Absolute Eos (auto) 0.0
Absolute Basos (auto) 0.0
Immature Gran % 0.6 H
Neutrophils % 85.7 H
Lymphocytes % 8.2 L
Monocytes % 5.2
Eosinophils % 0.0
Basophils % 0.3
Nucleated RBC % 0
Sodium 132 L
Potassium 3.9
Chloride 93 L
Carbon Dioxide 30
BUN 27 H
Creatinine 1.3 H
eGFR 42.35
Glucose 123 H
Calcium 10.5 H
Total Bilirubin 1.6 H
AST 27
ALT 32
Alkaline Phosphatase 68
Troponin I < 0.012
Total Protein 7.[address] Brain: No acute intracranial abnormality noted. Chronic senescent changes.
ECG (read by me): Sinus tachycardia @ 107, nl axis/intervals, no acute ST/TW changes
'Unresponsive episode:'
-currently there is a legitimate question as to whether there actually was a true unresponsive episode. This episode was only witnessed by the patient's daughter. As per discussion with the ER attending who spoke to the staff at [facility] the
patient has been in her usual state of health and sometimes has moments where she does not respond that quickly.
-Extensive workup in the ER is unremarkable other than mild acute kidney injury. This will surely resolve with 1 to 2 L of IV fluids.
-As per discussion with case management, patient cannot be placed this evening. Otherwise the patient would be medically stable for discharge after 1 to 2 L of IV fluids.
-Will place under observation status for ongoing disposition efforts
[2024-03-04] MEDS: HEPARIN SC (23:47)
[2024-03-04] MEDS: CRESTOR 40 MG PO (23:48)
[2024-03-04] MEDS: NSS 1000 IV (23:53)
[2024-03-05] MEDS: LEXAPRO PO (00:01)
--- NOTE | 2024-03-05 03:00 | EDRN ---
Report received, patient is sleeping at this time, daughter asking about bed status. informed her still not clean yet, but will check into it, will continue to monitor patients status
[2024-03-05 04:56] VITALS: BP 123/85; BMI 38.5
[2024-03-05] MEDS: TYLENOL 650 MG PO ×2 (05:09→21:56)
--- NOTE | 2024-03-05 06:00 | PTCARENOTE ---
Patients daughter called this nurse into the room. Patient was starring into space, lip smacking, moving tongue, had difficulty communicating, and not responding to commands. This event lasted 10-15 seconds. After patient did not remember the event.
She states that she needed to use the bedpan. Patient now stable. Messaged BOOGIE. This nurse will inform day shift nurse.
[2024-03-05 07:30] VITALS: BP 141/76
--- NOTE | 2024-03-05 07:44 | W.PN.HOSP.TC ---
Addendum entered and electronically signed by Benjie Martinez MD 03/05/24 11:38:
Acute toxic metabolic encephalopathy due to oxycodone. Stop oxycodone (discussed with neurology).
Original Note:
Today's Communication/Plan
-
see bold
Assessment / Plan
Assessment / Plan
Gen: NAD, AAOx3.
Eyes: EOMI, PERRLA, no scleral icterus.
Neck: supple.
CV: RRR, +S1/S2, no m/r/g.
Resp: CTAB, no rales, wheezes, or rhonchi.
Abd: +BS, soft, NT, ND
Skin: No rashes.
Neuro: CN 2-12 intact, non-focal.
Psych: Normal mood and affect.
CT Brain: No acute intracranial abnormality noted. Chronic senescent changes.
ECG (read by me): Sinus tachycardia @ 107, nl axis/intervals, no acute ST/TW changes
'Unresponsive episode:'
-currently there is a legitimate question as to whether there actually was a true unresponsive episode PLANNING COORDINATOR. This episode was only witnessed by the patient's daughter. As per discussion with the ER attending who spoke to the staff at [facility] the
patient has been in her usual state of health and sometimes has moments where she does not respond that quickly.
-Extensive workup in the ER was unremarkable other than mild acute kidney injury. Pt has been on IVFs, AM Cr pending.
-check EEG, c/s neuro
Other problems:
ELIZA: see above
Hyponatremia, mild, trend
Anxiety - continue Abilify and prn Valium and citalopram
Chronic pain with chronic opioid use with dependence: patient on oxycodone
h/o breast cancer: continue Anastrazole
Essential hypertension: cont Edarbyclor
Hyperlipidemia: cont statin
Patient's daughter updated at bedside.
FULL/heparin
Anticipated Discharge: Today
Subjective/Interval History
-
Date of Service: March 05, 2024
As per nursing and pt's daughter pt had another 'episode' this AM. Patient was 'staring off.' No tonic-clonic activity.
Objective Data
-
Labs:
Laboratory Results
03/05/24
06:00
WBC Pending
Hgb Pending
Hct Pending
Plt Count Pending
Sodium Pending
Potassium Pending
Chloride Pending
Carbon Dioxide Pending
BUN Pending
Creatinine Pending
Glucose Pending
Calcium Pending
Vital Signs:
Vital Signs
Temp Pulse Resp BP Pulse Ox
98.0 F 97 20 123/85 95
03/05/24 04:56 03/05/24 04:56 03/05/24 04:56 03/05/24 04:56 03/05/24 05:19
I&O
03/04/24 03/05/24 03/06/24
06:59 06:59 06:59
Intake Total 240 / 240
Balance 240 / 240
[2024-03-05 08:56] LABS: % Basophils 0.2 % (0-2); % Eosinophils 0.1 % (0-6); % Immature Granulocytes 0.5 % (0-0.5); % Monocytes 6.1 % (1.7-9.3); % Neutrophils 82.1 % (42.2-75.2); Absolute Lymphocytes 0.9 10^3/uL (1.2-3.4); Absolute Monocytes 0.5 10^3/uL (0.1-0.6); Hematocrit 28.5 % (37.0-47.0); Hemoglobin 10.1 g/dL (12.0-16.0); Mean Corp Hgb Conc. 35.4 g/dL (33.0-37.0); Mean Corpuscular Hgb 30.5 pg (27.0-31.0); Mean Corpuscular Volume 86.1 fL (81.0-99.0); Mean Platelet Volume 11.3 fL (7.4-10.4); Nucleated Red Blood Cells % 0 %; Platelet Count 217 10^3/uL (130-400); Red Blood Cell Count 3.31 10^6/uL (4.20-5.40); Red Cell Dist. Width 13.7 % (11.5-14.5); White Blood Cell Count 8.6 10^3/uL (4.8-10.8)
[2024-03-05 09:32] LABS: Blood Urea Nitrogen 28 mg/dl (7-17); Calcium 9.8 mg/dl (8.4-10.2); Carbon Dioxide 24 mmol/L (22-30); Chloride 96 mmol/L (98-107); Estimated Creatinine Clearance 48 ml/min; Glucose 110 mg/dl (70-99); Potassium 3.4 mmol/L (3.5-5.1); Sodium 130 mmol/L (135-145); eGFR 51.75
[2024-03-05] MEDS: ABILIFY 2.5 MG PO (09:36)
[2024-03-05] MEDS: MAG-TAB SR 84 MG PO (09:37)
[2024-03-05] MEDS: ARIMIDEX 1 MG PO (09:37)
[2024-03-05] MEDS: PLAVIX 75 MG PO (09:37)
[2024-03-05] MEDS: VISBIOME 1 CAP PO (09:37)
[2024-03-05] MEDS: OSCAL CAL 500 500 MG PO (09:37)
[2024-03-05] MEDS: VITAMIN D3 (cholecalciferol) 25 MCG PO (09:38)
[2024-03-05] MEDS: THERAGRAN 1 TABLET PO (09:38)
[2024-03-05] MEDS: HEPARIN SC (09:40)
[2024-03-05] MEDS: NSS 1000 IV ×2 (09:47→18:23)
--- NOTE | 2024-03-05 11:14 | CM ---
Reviewed the chart notes and spoke with the patient and her daughter at the bedside. The patient is being admitted under observational status. The GOODEN letter was provided and explained. The patient had no questions with regards to the letter.
The patient was recently hospitalized here (01/29-02/04) and discharged to [facility]. Prior to hospitalization, the patient resided alone in a two story home with a ramp to enter. The patient has a rollator, walking stick, cane, and shower chair. The
patient has had [facility] VN and been to [place] acute rehab and [place]. Will need PT/OT evaluation. CM continues to be available to patient/family and is monitoring medical plan for needs at discharge.
Plan: Discharge plans will depend on the patient's progress. Will need PT/OT evaluation for discharge planning purposes.
--- NOTE | 2024-03-05 11:19 | EEG.RPT ---
Electroencephalogram Report
Recording
Date of EE03/05/24
Length of EEG recordin
Done with Video Recording: Yes
Patient Status: Inpatient
Recording Conditions: Awake
Hyperventilation Performed: No
Photic Stimulation Performed: Yes
Report
LESS THAN 1 HOUR EEG REPORT
LESS THAN 1 HOUR EEG INTERPRETATION:
Unremarkable EEG for age
CLINICAL CORRELATION:
This was unremarkable EEG for age. Normal EEG does not rule out epilepsy.
Clinical correlation is advised.
METHODS: A 21 channel digitized electroencephalogram (EEG) was performed using the 10/20 international system of electrode placement and one-lead of ECG recorded. Study lasted 28 minutes.
ELECTROENCEPHALOGRAPHER IMPRESSION(S):
Quality of study
Good
Background
Normal medium amplitude background of theta and alpha activity in awake and drowsy states
Posterior dominant rhythm of 8-9 hz seen
No background asymmetry
Sleep
Drowsiness present
Photic Stimulation
No activation
ECG
Normal sinus rhythm
Abnormalities
No significant abnormalities, no seizures or interictal epileptiform discharges
--- NOTE | 2024-03-05 11:49 | CON.NEURO4 ---
Consultation - Neurology 4
-
CONSULTING PHYSICIAN: Kavon Germain MD(Neurology)
REFERRING PHYSICIAN: Hospitalist
DICTATED BY: Kavon Germain
DATE/TIME OF REQUEST: March 04, 2024
DATE/TIME OF CONSULTATION: March 05, 2024. 11 AM
Reason for Consultation: Altered mental status
History of Present Illness:
This is a 79year old right handed female who was presented to the hospital with altered mental status. She gives a history of Multiple sclerosis, R TELEGRAPH LINEMAN ischemic stroke 02/2022,with residual left homonymous hemianopia, cognitive impairment, HTN,
HLD, Sjogren's syndrome, DJD, spinal stenosis, osteoarthritis, PVCs, peripheral neuropathy, obesity, normal pressure hydrocephalus, who has had multiple admissions.
She is currently a resident at [facility].
According to the staff at [facility] they did not witness unresponsiveness they said patient appeared to be breathing and acting normally�At baseline she is sedentary. Daughter insist that when she went into see her mother she was unresponsive
although she seemed to be breathing. EMS called to the scene to bring her to the hospital. On arrival at the hospital patient says she has no complaints�she denies headache, chest pain, back pain, abdominal pain. Denies feeling nausea. She
denies any recent fevers. According to staff at [facility] she has been at her baseline health recently. Review of her medication list does show that she is on multiple medications which could lead to sedation including both Valium and oxycodone
(was given oxycodone apparently shortly before onset of symptoms), Lexapro, Abilify. Daughter says that she thinks her mother is slightly more confused than usual but patient insist that she feels fine and appears to be awake alert here.
Review of patient's chart shows that she had a recent admission 01/29 until 02/04 for infection in the left wrist
Previous admission note states that she had blurry vision. Associated with the vision changes she 'felt unwell' increased gait instability/incoordination and generalized weakness from baseline. Pat will occasionally utilize walker at home for
ambulation but daughter notes there is increased use of walker over past couple of days.
Patient does have a history of MS, diagnosed in 2007. Her presenting symptoms at onset of diagnosis included: extreme fatigue, gait imbalance, and bilateral hand weakness. She utilized Copaxone for MS management, however after a year she felt the
medication did not benefit her and she discontinued the medication in 2008 and since has opted to not take a preventive medication for MS. She cannot recall last Ms flare occurrence. She was previously seeing a neurologist at [place], Dr. Samuels,
but has lost follow up in the past 3-4 years. She has not obtained a repeat MRI of brain for assessment of MS lesions in past 5 years.
Last MRI brain(02/14/22) demonstrated a R TELEGRAPH LINEMAN ischemic stroke. MRA head suggestive of a right P2 occlusion. She completed 21 days of DAPT at that time and then was continued on Plavix 75mg daily since then due to the stroke occurring while on aspirin
therapy. Patient has poor insight but reports that she lives alone and ambulates with a rolling walker. Her daughters have been concerned about her gait and memory, confusion, shuffled gait, and falls.
She had Neuropsychological testing completed in December 2023 that was suggestive of dementia. There was spasticity noted in her legs and her gait was shuffling, her Neurologist started her on Sinemet for possible Parkinson disease.
Patient had a transient increase in confusion after the cat scratch, this has improved somewhat.
Past Medical History: As above
Surgical History:
Family History: Daughter Lupus
Social History: jail resident
Allergies: DIANA
Home Medications: Anastrozole 1 mg tablet 1 mg PO DAILY Hormonal Agent 01/30/24
aripiprazole 5 mg tablet 2.5 mg PO DAILY Mental health 01/30/24
azilsartan medoxomil 40 mg-chlorthalidone 25 mg tablet (Edarbyclor) 1 tab PO DAILY Blood Pressure 01/30/24
calcium carbonate 500 mg PO DAILY Supplement 01/30/24
cholecalciferol (vitamin D3) 25 mcg (1,000 unit) tablet (Vitamin D3) 25 mcg PO DAILY Supplement 01/30/24
clopidogrel 75 mg tablet 75 mg PO DAILY Blood Clot Prevention/Tx 01/30/24
magnesium oxide 400 mg PO DAILY Electrolyte Repletion 01/30/24
rosuvastatin 40 mg tablet 40 mg PO HS High Cholesterol 01/30/24
polyethylene glycol 3350 17 gram oral powder packet (HealthyLax) 17 g PO DAILYPRN PRN constipation #14 ea 02/05/24
Lactobac no.2-Bifidobac no.1-S. thermo 112.5 billion cell capsule (Visbiome) 1 cap PO DAILY 03/04/24
acetaminophen 325 mg tablet (Tylenol) 650 mg PO Q4HPRN PRN mild pain/fever >100 03/04/24
bisacodyl 10 mg rectal suppository (Dulcolax (bisacodyl)) 10 mg SD DAILYPRN PRN day 5 no bm, mom ineffective 03/04/24
diazepam 5 mg tablet (Valium) 5 mg PO HS 03/04/24
escitalopram oxalate 5 mg tablet (Lexapro) 5 mg PO HS 03/04/24
magnesium hydroxide 400 mg/5 mL oral suspension (Milk of Magnesia) 30 ml PO Q96H PRN day 4 no bm 03/04/24
naloxone 4 mg/actuation nasal spray (Narcan) 1 spray intranasal Q3MPRN PRN opioid overdose 03/04/24
oxycodone 5 mg tablet 5 mg PO Q8HPRN PRN severe pain 03/04/24
sodium phosphates 19 gram-7 gram/118 mL enema (Fleet Enema) 118 ml SD DAILYPRN PRN day 6 no bm, dulcolax ineffective 03/04/24
therapeutic multivitamin 1 tab PO DAILY 03/04/24
Review of Symptoms:
Patient denies any fever, headache, chest pain, shortness of breath, GI or symptoms.
�Per the HPI.�All systems are reviewed negative except above.
'Per the HPI. I am unable to obtain a complete review of systems�because of patient's inability to provide history.'
Vital Signs:
Physical Exam:
The patient is afebrile, heart sounds S1 and S2 are regular , and chest is clear to auscultation bilaterally.
- If not clear, describe.
Neurologic Examination:
The patient is arousable, confused and oriented x close. She is able to follow commands and answer questions appropriately. There is no aphasia or dysarthria.
On cranial nerve assessment, pupils are 3 mm bilateral, round and reactive to light and accommodation. Visual villela are constricted with left field cut. Extraocular movements are intact. Facial sensations are intact and bilaterally symmetrical,
there is no facial asymmetry. Hearing is intact bilaterally to normal conversation volume. Tongue palate and uvula are midline. Sternocleidomastoid strengths are full bilaterally.
Motor strengths are 4/5 bilateral upper and lower extremities on medical research [place] scale. There is no drift or involuntary movement noted. Deep tendon reflexes are + bilateral upper and lower extremities and Babinski is absent bilaterally.
Sensations of pain, touch, temperature and vibration are decreased.. Coordination is intact by finger to nose bilaterally.
Unable to stand or walk as she is bedbound
Lab Results:
Neuro Imagin.
CT head 01/30/24: There are moderate changes of cortical atrophy and chronic ischemic disease, unchanged. There is an old right occipital lobe infarct, unchanged. There are no acute findings.
2. MRI brain 02/14/22: Subacute/Acute nonhemorrhagic infarct in the right medial temporal and right occipital lobe. Similar to the finding on CT. Mild to moderate diffuse volume loss. Moderate leukoaraiosis.
3. MRA COW 02/14/22: Severely limited examination due to patient motion. Mild to moderate narrowing of the left ICA in the cavernous sinus. Focal area of stenosis in the proximal MCA bilaterally. Limited visualization of the right TELEGRAPH LINEMAN, no definite
vessel identified past the origin.
4. Carotid ultrasound 02/14/22: Homogenous plaque mid right common carotid artery, calcified bulky plaque right carotid bulb. Based on velocity criteria, no hemodynamically significant stenosis seen in the internal carotid artery. Consider further
enhanced imaging if clinically warranted given bulky plaque, though duplex does not demonstrate hemodynamically significant stenosis by velocity measurements. Right external carotid artery with velocity elevation suggestive of external carotid
artery stenosis proximally diseased but may not be of clinical consequence). Moderate/bulky calcified plaque seen left carotid bulb. No hemodynamically significant left internal carotid artery stenosis greater than 50% seen based on velocity
criteria. Antegrade flow bilateral vertebral arteries.
Impression:
Mrs BRITTNY DAVIS is a 79 year old F who has presented to the hospital with h/o MS, dementia and altered mental status secondary to polypharmacy which has improved following discontinuation of oxycodone
Recommendations:
1. Stop oxycodone
2. Stop benzodiazepines
3. Continue current medical therapies
4. EEG completed
5. IV fluids
6. Maintain nutritional status
Discussed patient care with: Daughter And hospitalist
Total Time Spent with Patient (in minutes): 30
Vital Signs and Labs
-
Vital Signs and Labs:
Vital Signs
Temp Pulse Resp BP Pulse Ox
36.4 C 89 16 141/76 96
03/05/24 07:30 03/05/24 07:30 03/05/24 07:30 03/05/24 07:30 03/05/24 07:30
Lab Results
03/05/24 08:25
03/05/24 08:25
Sodium 130 mmol/L (135-145) L 03/05/24 08:25
Potassium 3.4 mmol/L (3.5-5.1) L 03/05/24 08:25
BUN 28 mg/dl (7-17) H 03/05/24 08:25
Glucose 110 mg/dl (70-99) H 03/05/24 08:25
Calcium 9.8 mg/dl (8.4-10.2) 03/05/24 08:25
[2024-03-05 15:25] VITALS: BP 124/68
[2024-03-05] MEDS: HEPARIN 5000 UNITS SC (19:57)
[2024-03-05] MEDS: CRESTOR 40 MG PO (21:22)
[2024-03-05] MEDS: LEXAPRO 5 MG PO (21:22)
[2024-03-05 23:08] VITALS: BP 148/79
[2024-03-06] MEDS: NSS 1000 IV (06:42)
[2024-03-06 07:35] VITALS: BP 139/65
--- NOTE | 2024-03-06 07:59 | W.PN.HOSP.TC ---
Today's Communication/Plan
-
see bold
Assessment / Plan
Assessment / Plan
Gen: NAD, Awake and alert
Eyes: EOMI, PERRLA, no scleral icterus.
Neck: supple.
CV: remains RRR, +S1/S2, no m/r/g.
Resp: remains CTAB, no rales, wheezes, or rhonchi.
Abd: +BS, soft, NT, ND
Skin: No rashes.
Neuro: CN 2-12 intact, non-focal.
Psych: Normal mood and affect.
CT Brain: No acute intracranial abnormality noted. Chronic senescent changes.
ECG (read by me): Sinus tachycardia @ 107, nl axis/intervals, no acute ST/TW changes
EEG: Unremarkable EEG for age
'Unresponsive episode:'
-currently there is a legitimate question as to whether there actually was a true unresponsive episode PUBLISHING SYSTEMS ANALYST. This episode was only witnessed by the patient's daughter. As per discussion with the ER attending who spoke to the staff at [facility] the
patient has been in her usual state of health and sometimes has moments where she does not respond that quickly.
-Extensive workup in the ER was unremarkable other than mild acute kidney injury. Pt has been on IVFs, Cr improving.
-neuro saw in c/s, EEG unremarkable
-Unresponsive episodes could be due to acute toxic metabolic encephalopathy due to narcotics and benzodiazepines. These medications have been stopped.
Other problems:
Hypokalemia, follow AM K
ELIZA: see above
Hyponatremia, mild, trend
Anxiety - continue Abilify and prn Valium and citalopram
Chronic pain with chronic opioid use with dependence: patient on oxycodone
h/o breast cancer: continue Anastrazole
Essential hypertension: cont Edarbyclor
Hyperlipidemia: cont statin
Patient's daughter updated at bedside.
FULL/heparin
Anticipated Discharge: Within 24 hours
Subjective/Interval History
-
Date of Service: March 06, 2024
No new complaints.
Objective Data
-
Vital Signs:
Vital Signs
Temp Pulse Resp BP Pulse Ox
98.7 F 92 18 148/79 96
03/05/24 23:08 03/05/24 23:08 03/05/24 23:08 03/05/24 23:08 03/05/24 23:08
I&O
03/05/24 03/06/24 03/07/24
06:59 06:59 06:59
Intake Total 240 / 240 1440 / 1440
Balance 240 / 240 1440 / 1440
[2024-03-06] MEDS: ABILIFY 2.5 MG PO (09:03)
[2024-03-06] MEDS: ARIMIDEX 1 MG PO (09:04)
[2024-03-06] MEDS: OSCAL CAL 500 500 MG PO (09:04)
[2024-03-06] MEDS: HEPARIN 5000 UNITS SC ×2 (09:04→19:51)
[2024-03-06] MEDS: MAG-TAB SR 84 MG PO (09:04)
[2024-03-06] MEDS: VITAMIN D3 (cholecalciferol) 25 MCG PO (09:05)
[2024-03-06] MEDS: VISBIOME 1 CAP PO (09:05)
[2024-03-06] MEDS: PLAVIX 75 MG PO (09:05)
[2024-03-06] MEDS: THERAGRAN 1 TABLET PO (09:05)
[2024-03-06 09:54] LABS: Blood Urea Nitrogen 25 mg/dl (7-17); Calcium 9.4 mg/dl (8.4-10.2); Carbon Dioxide 26 mmol/L (22-30); Chloride 101 mmol/L (98-107); Estimated Creatinine Clearance 59 ml/min; Glucose 91 mg/dl (70-99); Potassium 3.2 mmol/L (3.5-5.1); Sodium 133 mmol/L (135-145); eGFR > 60.00
[2024-03-06] MEDS: KCL 40 MEQ PO ×2 (11:42→16:55)
--- NOTE | 2024-03-06 12:35 | CM ---
Addendum entered by Eliana Goodman 03/06/24 16:01:
CM received call from [place]. Gonzáles [phone] who is looking into patient daughter allegations and will review needs with patient daughter Dana.
Addendum entered by Eliana Goodman 03/06/24 15:12:
other daughter Jael now here claiming to also be POA. Per Jael she also wants CM to call daughter Dana and get patient id back, as well as rings. CM called to [facility] and spoke with police officer. awaiting call back from patrol police lieutenant.
Original Note:
Patient seen at bedside. Patient daughter on phone. Patient daughter requested to talk to physician as she understood from Neurology that patient would need to stay at until Friday. CM sent TT to physician with request. PT/OT have not assessed
patient as of yet CM sent referral to [facility] awaiting response. Patient is angry at her daughter but does not want to talk to [facility]. Patient wants to return to her home, daughter states it is not safe. CM called and left VM to daughter. CM will
continue to follow for discharge planning needs.
Plan; SNF vs home with VN
--- NOTE | 2024-03-06 12:40 | W.PN.UPDATE ---
Update Note
Progress Note Update
[facility] and [facility] for [facility]. Case management aware.
[2024-03-06 13:44] LABS: Magnesium 2.1 mg/dl (1.6-2.3)
[2024-03-06 16:54] VITALS: BP 133/80
[2024-03-06] MEDS: TYLENOL 650 MG PO (19:58)
[2024-03-06] MEDS: LEXAPRO 5 MG PO (21:10)
[2024-03-06] MEDS: CRESTOR 40 MG PO (21:10)
[2024-03-06 23:55] VITALS: BP 140/76
[2024-03-07 04:58] LABS: Glucose - Point of Care 99 mg/dl (70-99)
[2024-03-07 05:00] VITALS: BP 110/75
--- NOTE | 2024-03-07 05:18 | PTCARENOTE ---
Patient woke up calling out. Patient is disorientated to location. Patient was alert and oriented x 3 at the beginning of this nurses shift. Patient has had slight confusion at times. She now thinks she is at the dentist office. After multiple
attempts to reorient patient she continued to try to get out of bed. Patients vital signs are all within normal range and blood sugar is 99. Messaged ACCOUNT UNDERWRITER regarding change in orientation. Adding bed alarm. Will continue to closely monitor.
[2024-03-07 07:25] VITALS: BP 131/70
--- NOTE | 2024-03-07 07:39 | W.PN.HOSP.TC ---
Today's Communication/Plan
-
d/c
Assessment / Plan
Assessment / Plan
Gen: NAD, Awake and alert
Eyes: EOMI, PERRLA, no scleral icterus.
Neck: supple.
CV: continues to remain RRR, +S1/S2, no m/r/g.
Resp: continues to remain CTAB, no rales, wheezes, or rhonchi.
Abd: +BS, soft, NT, ND
Skin: No rashes.
Neuro: CN 2-12 intact, non-focal.
Psych: flat affect.
CT Brain: No acute intracranial abnormality noted. Chronic senescent changes.
ECG (read by me): Sinus tachycardia @ 107, nl axis/intervals, no acute ST/TW changes
EEG: Unremarkable EEG for age
'Unresponsive episode:'
-currently there is a legitimate question as to whether there actually was a true unresponsive episode BUYER AGENT. This episode was only witnessed by the patient's daughter. As per discussion with the ER attending who spoke to the staff at [facility] the
patient has been in her usual state of health and sometimes has moments where she does not respond that quickly.
-Extensive workup in the ER was unremarkable other than mild acute kidney injury which resolved with IVFs.
-neuro saw in c/s, EEG unremarkable
-Unresponsive episodes likely be due to acute toxic metabolic encephalopathy due to narcotics and benzodiazepines. These medications have been stopped.
Other problems:
Hypokalemia, follow AM K
ELIZA: see above
Hyponatremia, mild, trend
Anxiety - continue Abilify and prn Valium and citalopram
Chronic pain with chronic opioid use with dependence: patient on oxycodone
h/o breast cancer: continue Anastrazole
Essential hypertension: cont Edarbyclor
Hyperlipidemia: cont statin
FULL/heparin
Medically cleared for discharge since 03/06/24. Case management aware.
Anticipated Discharge: Today
Subjective/Interval History
-
Date of Service: March 07, 2024
No new complaints.
Objective Data
-
Labs:
Laboratory Results
03/07/24
06:00
Sodium Pending
Potassium Pending
Chloride Pending
Carbon Dioxide Pending
BUN Pending
Creatinine Pending
Glucose Pending
Calcium Pending
Vital Signs:
Vital Signs
Temp Pulse Resp BP Pulse Ox
97.7 F 82 18 110/75 97
03/07/24 05:00 03/07/24 05:00 03/07/24 05:00 03/07/24 05:00 03/07/24 05:00
I&O
03/06/24 03/07/24 03/08/24
06:59 06:59 06:59
Intake Total 1440 / 1440 720 / 720
Balance 1440 / 1440 720 / 720
[2024-03-07] MEDS: THERAGRAN 1 TABLET PO (08:33)
[2024-03-07] MEDS: ABILIFY 2.5 MG PO (08:33)
[2024-03-07] MEDS: MAG-TAB SR 84 MG PO (08:33)
[2024-03-07] MEDS: VISBIOME 1 CAP PO (08:33)
[2024-03-07] MEDS: ARIMIDEX 1 MG PO (08:33)
[2024-03-07] MEDS: PLAVIX 75 MG PO (08:33)
[2024-03-07] MEDS: OSCAL CAL 500 500 MG PO (08:33)
[2024-03-07] MEDS: VITAMIN D3 (cholecalciferol) 25 MCG PO (08:33)
[2024-03-07] MEDS: HEPARIN 5000 UNITS SC ×2 (08:34→21:15)
--- NOTE | 2024-03-07 14:47 | CM ---
Addendum entered by Eliana Goodman 03/07/24 15:15:
Patient daughter Dana indicated to CM that Patient other daughters are planning to take patient home. Patient daughter to email, POA. Daughter indicated that [facility] and [facility] were the options she would choose however, daughter indicated that her
sister's are demanding she give them the POA and decision making. CM will continue to follow for discharge planning needs.
Plan; SNF
Original Note:
CM called to patient daughter Dana and left requesting alternative SNF options to place referrals. Patient daughter JOSELYN stated she was unavailable. CM will continue to follow for discharge planning needs.
Plan; SNF
[2024-03-07 15:30] VITALS: BP 122/60
--- NOTE | 2024-03-07 19:35 | PTCARENOTE ---
Family at bedside worried about patients L hand with steri strips more ecchymotic and swollen. From previous RN reports patient noted to have L hand ecchymosis and edema on admission. Family insistent on getting an xray and hvaing ID consulted. WBC
WNL and patient having no fevers. VSS. Site on hand is CDI and no redness or oozing. MD made aware. No new orders at this time.
[2024-03-07] MEDS: CRESTOR 40 MG PO (21:15)
[2024-03-07] MEDS: LEXAPRO 5 MG PO (21:15)
[2024-03-07 23:36] VITALS: BP 139/80
[2024-03-08 06:00] VITALS: BMI 38.7
[2024-03-08 07:14] LABS: Blood Urea Nitrogen 17 mg/dl (7-17); Calcium 10.1 mg/dl (8.4-10.2); Carbon Dioxide 27 mmol/L (22-30); Chloride 102 mmol/L (98-107); Estimated Creatinine Clearance 66 ml/min; Glucose 89 mg/dl (70-99); Potassium 3.6 mmol/L (3.5-5.1); Sodium 135 mmol/L (135-145); eGFR > 60.00
[2024-03-08 07:30] VITALS: BP 156/79
[2024-03-08] MEDS: VISBIOME 1 CAP PO (09:49)
[2024-03-08] MEDS: THERAGRAN 1 TABLET PO (09:49)
[2024-03-08] MEDS: HEPARIN 5000 UNITS SC ×2 (09:49→21:08)
[2024-03-08] MEDS: VITAMIN D3 (cholecalciferol) 25 MCG PO (09:49)
[2024-03-08] MEDS: OSCAL CAL 500 500 MG PO (09:49)
[2024-03-08] MEDS: MAG-TAB SR 84 MG PO (09:49)
[2024-03-08] MEDS: ABILIFY 2.5 MG PO (09:50)
[2024-03-08] MEDS: PLAVIX 75 MG PO (09:51)
[2024-03-08] MEDS: ARIMIDEX 1 MG PO (09:51)
--- NOTE | 2024-03-08 11:46 | W.PN.HOSP.TC ---
Today's Communication/Plan
-
Monitor vital signs see plan
Dispo planning
Assessment / Plan
Assessment / Plan
Gen: NAD, Awake and alert
Eyes: EOMI, PERRLA, no scleral icterus.
Neck: supple.
CV: continues to remain RRR, +S1/S2, no m/r/g.
Resp: continues to remain CTAB, no rales, wheezes, or rhonchi.
Abd: +BS, soft, NT, ND
Skin: No rashes.
Neuro: CN 2-12 intact, non-focal.
Psych: flat affect.
CT Brain: No acute intracranial abnormality noted. Chronic senescent changes.
ECG (read by me): Sinus tachycardia @ 107, nl axis/intervals, no acute ST/TW changes
EEG: Unremarkable EEG for age
'Unresponsive episode:'
-currently there is a legitimate question as to whether there actually was a true unresponsive episode INSPECTOR PAWNSHOP DETAIL. This episode was only witnessed by the patient's daughter. As per discussion with the ER attending who spoke to the staff at [facility] the
patient has been in her usual state of health and sometimes has moments where she does not respond that quickly.
-Extensive workup in the ER was unremarkable other than mild acute kidney injury which resolved with IVFs.
-neuro saw in c/s, EEG unremarkable
-Unresponsive episodes likely be due to acute toxic metabolic encephalopathy due to narcotics and benzodiazepines. These medications have been stopped.
Other problems:
Hypokalemia, improving
ELIZA: see above
Hyponatremia, mild, trend
Anxiety - continue Abilify and prn Valium and citalopram
Chronic pain with chronic opioid use with dependence: patient on oxycodone
h/o breast cancer: continue Anastrazole
Essential hypertension: cont Edarbyclor
Hyperlipidemia: cont statin
FULL/heparin
Medically cleared for discharge since 03/06/24. Case management aware.
Anticipated Discharge: Today
Subjective/Interval History
-
Date of Service: March 08, 2024
denies pain
Objective Data
-
Labs:
Laboratory Results
03/07/24 03/08/24
22:00 06:27
Sodium Cancelled 135
Potassium Cancelled 3.6
Chloride Cancelled 102
Carbon Dioxide Cancelled 27
BUN Cancelled 17
Creatinine Cancelled 0.8
Glucose Cancelled 89
Calcium Cancelled 10.1
Vital Signs:
Vital Signs
Temp Pulse Resp BP Pulse Ox
97.7 F 82 12 156/79 97
03/08/24 07:30 03/08/24 07:30 03/08/24 07:30 03/08/24 07:30 03/08/24 07:30
I&O
03/07/24 03/08/24 03/09/24
06:59 06:59 06:59
Intake Total 720 / 720 1440 / 1440
Balance 720 / 720 1440 / 1440
--- NOTE | 2024-03-08 12:25 | CM ---
Addendum entered by JARROD Vazquez 03/08/24 15:43:
Spoke with patient's daughter, Jael, who was in room with patient and office on aging customer support representative Debi who was providing residential child care counselor. (From [facility])
Patient's daughter put patient's other daughter, Therese, on the phone (there are three daughters, Dana is estranged from Therese and Jael) Jael stated that she wants patient to go to a SNF. Explanation provided that patient is under obs and
therefore would not get the 3 night stay needed. Provided list to patient's daughter Jael of local SNFs to [place] despite the lack of coverage in the event that they want to pay privately or patient may be able to go through on secondary which
is [place].
Patient's daughter stated that she did not want patient to use her Medicaid benefit as she and Therese will be speaking to an Elder Law steward/stewardess club car first to confirm that she is utilizing the benefit and there won't be any repercussions.
Will also explore whether patient is a part of the [facility] Medicare Waiver program.
Patient agreeable to SNF as her daughter felt best with this plan. Will explore any options where patient may qualify for SNF coverage.
Addendum entered by JARROD Vazquez 03/08/24 14:21:
Office on aging never arrived. Met with patient who stated that she would like to return home. She was advised that medical indication is for SNF however she is in observation. Patient stated that she would like to return home and figure out between
her daughters who will stay with her.
Placed a call to Dana to advise that office on aging never arrived. She stated that she would call.
Original Note:
Reviewed chart. Received a call from patient's daughter, Dana, who stated that she does not want patient to return home with her other daughter, Jael as she feels she will be neglected. Advised Dana that the medical indication is for patient to
go to Rehab (patient is obs however) so she will not have her 3 night qualifying stay. She stated that the office on aging will be in to see patient at 12:30 and asked if CM could be there. She was advised that CM can be there. She stated that the
meeting is an assessment to increase her hours under her waiver program.
Spoke with patient's attending to update and medical advisement is for SNF however patient is able to state her wishes for discharge. Will meet with patient to determine what her thoughts are on discharge and will convey,
Received message from Jael, who stated that she wants a return call. Placed a return call to Jael however there was no answer. Left a voice mail message and provided contact information.
Plan: Case management will continue to follow and assist with discharge planning. Home with daughter iron. SNF.
[2024-03-08 15:31] VITALS: BP 103/70
[2024-03-08] MEDS: LEXAPRO 5 MG PO (21:09)
[2024-03-08] MEDS: CRESTOR 40 MG PO (21:10)
[2024-03-08 23:17] VITALS: BP 151/80
[2024-03-09] MEDS: TYLENOL 650 MG PO (05:16)
[2024-03-09 06:00] VITALS: BMI 38.6
[2024-03-09 07:05] LABS: Blood Urea Nitrogen 17 mg/dl (7-17); Calcium 9.8 mg/dl (8.4-10.2); Carbon Dioxide 24 mmol/L (22-30); Chloride 99 mmol/L (98-107); Estimated Creatinine Clearance 66 ml/min; Glucose 108 mg/dl (70-99); Potassium 3.3 mmol/L (3.5-5.1); Sodium 134 mmol/L (135-145); eGFR > 60.00
[2024-03-09 07:30] VITALS: BP 147/80
[2024-03-09] MEDS: ARIMIDEX 1 MG PO (08:58)
[2024-03-09] MEDS: KCL 40 MEQ PO (08:58)
[2024-03-09] MEDS: VITAMIN D3 (cholecalciferol) 25 MCG PO (08:58)
[2024-03-09] MEDS: MAG-TAB SR 84 MG PO (08:58)
[2024-03-09] MEDS: VISBIOME 1 CAP PO (08:58)
[2024-03-09] MEDS: THERAGRAN 1 TABLET PO (08:58)
[2024-03-09] MEDS: OSCAL CAL 500 500 MG PO (08:58)
[2024-03-09] MEDS: PLAVIX 75 MG PO (08:58)
[2024-03-09] MEDS: ABILIFY 2.5 MG PO (08:58)
[2024-03-09] MEDS: HEPARIN 5000 UNITS SC (08:59)
--- NOTE | 2024-03-09 10:43 | W.PN.HOSP.TC ---
Addendum entered and electronically signed by Aaron Yip MD 03/09/24 12:37:
Notified by mattress spring encaser that patient is now going home with VN. DC home today.
Time of discharge 37 minutes
Original Note:
Today's Communication/Plan
-
monitor vitals
see plan
family to make a decision on dispo;CM involved
Assessment / Plan
Assessment / Plan
Gen: NAD, Awake and alert
Eyes: EOMI, PERRLA, no scleral icterus.
CV: continues to remain RRR, +S1/S2, no m/r/g.
Resp: continues to remain CTAB, no rales, wheezes, or rhonchi.
Abd: +BS, soft, NT, ND
Neuro: CN 2-12 intact, non-focal.
Psych: flat affect.
CT Brain: No acute intracranial abnormality noted. Chronic senescent changes.
EEG: Unremarkable EEG for age
'Unresponsive episode:'
-currently there is a legitimate question as to whether there actually was a true unresponsive episode [employer]. This episode was only witnessed by the patient's daughter. As per discussion with the ER attending who spoke to the staff at [facility] the
patient has been in her usual state of health and sometimes has moments where she does not respond that quickly.
-Extensive workup in the ER was unremarkable other than mild acute kidney injury which resolved with IVFs.
-neuro saw in c/s, EEG unremarkable
-Unresponsive episodes likely be due to acute toxic metabolic encephalopathy due to narcotics and benzodiazepines. These medications have been stopped.
Other problems:
Hypokalemia, improving; replete as necessary
ELIZA: see above
Hyponatremia, mild, trend
Anxiety - continue Abilify and prn Valium and citalopram
Chronic pain with chronic opioid use with dependence: patient on oxycodone
h/o breast cancer: continue Anastrazole
Essential hypertension: cont Edarbyclor
Hyperlipidemia: cont statin
FULL/heparin
Medically cleared for discharge since 03/06/24. Case management aware.
Anticipated Discharge: Today
Subjective/Interval History
-
Date of Service: March 09, 2024
denies pain
Objective Data
-
Labs:
Laboratory Results
03/09/24
05:59
Sodium 134 L
Potassium 3.3 L
Chloride 99
Carbon Dioxide 24
BUN 17
Creatinine 0.8
Glucose 108 H
Calcium 9.8
Vital Signs:
Vital Signs
Temp Pulse Resp BP Pulse Ox
97.3 F 92 16 147/80 96
03/09/24 07:30 03/09/24 07:30 03/09/24 07:30 03/09/24 07:30 03/09/24 07:30
I&O
03/08/24 03/09/24 03/10/24
06:59 06:59 06:59
Intake Total 1440 / 1440 1440 / 1440
Balance 1440 / 1440 1440 / 1440
--- NOTE | 2024-03-09 11:18 | CM ---
Addendum entered by [facility] 03/09/24 14:22:
Call from other jackr/Dana Deliamolly [phone]
Requesting update- aware she is not listed as a contact on chart and info cannot be provided
Bedside meeting with pt and other dtr/Therese
Pt refusing to allow info to be shared with dtr/Daan and would not list as contact
CM suggested dc planning update to Dana regarding today's dc- pt continued to refused
Would not allow info to be shared about today's dc and plans with dtr/Dana
Update to Dana directing her to call pt to discuss planning as per pt's instructions
Addendum entered by [facility] 03/09/24 12:35:
Pt accepted for service by [facility]
Requested SW assist for additional supports in the home
POA only for financial- medical POA paperwork placed in dc folder
Dtr/Jael aware and will complete at later time
VN order requested
Transport forms on chart
Discharge Disposition- home with [facility] and 24/7 care through family/private duty via BLS
Fax- [phone]
Original Note:
CM reviewed pt with Dr Yip- ready for dc
Bedside meeting with pt and dtr/Therese
Financial POA now on chart and jackr/Jael is now agent
Call with dtr/Jael to review dc planning
Plan for home today with homecare
[facility] is choice and referral sent and pending via [facility]
Pt resides at [address] [place] [address]
Pt resides alone in a 2SH with ramp entrance and 1st floor setup
Pt has a hospital bed with trapeze bar, wheelchair and lift chair
PCP- Dr Vesna Freeman
Dtrs/Therese and Jael will ensure 24/7 caregivers
Will contact [facility] to set up private duty care
Transportation discussed- plan for BLS if appropriate
If not appropriate, dtr/Therese and her spouse will transport home as fees declined for [facility]
Of note- challenging family dynamics with third daughter/Dana
Update to [facility] Debi Jesus [phone]
She is in agreement with plan and noted dtr/Jael is appropriate to act as primary caregiver and agent
Pt remains OBS and does not qualify for [employer]/waiver per Miley Hagan
Pt remains without qualifying SNF coverage and pt and family decline private payment
Pt current with Aging waiver services but plans to disenroll as does not want [place] Estate [employer] issues
Discharge Disposition- home with [facility] (referral pending)
--- NOTE | 2024-03-09 12:36 | W.DCSUMMARY ---
Discharge Summary
Discharge Data
Date of Admission: 03/04/24
Date of Discharge: 03/09/24
-
Pending Results: No
Hospital Course
79-year-old female with past medical history of anxiety, chronic pain with chronic opioid use with dependence, history of breast cancer, essential hypertension, hyperlipidemia came to the hospital after unresponsive episode. Patient symptoms were
likely thought was secondary to narcotics and benzodiazepine use. On this hospitalization patient initially had acute kidney injury which over time improved. Patient was also seen by neurology and EEG was unremarkable. Patient's symptoms over
time continue to improve. Patient was also evaluated by physical therapy who recommended SNF. Multiple family members were involved regarding disposition on this hospitalization. Eventually decision was made to rather take patient home with home
care. On 03/09/2024 patient was discharged home.
Discharge Plan
-
Patient Disposition: Home with Home Care
Discharge Diagnosis/Procedures: Acute toxic metabolic encephalopathy due to opioids and benzodiazepines
Condition: Fair
Diet: Other diet
Additional Diets: heart healthy
Activity: With assistance
Driving Restrictions: No driving
Blood Work: BMP, CBC, Mg in 1 week, script from PCP
Referrals:
Taye Culver MD [Active] -
Janet Min DO [Family Provider] - in less than 1 week
Harriett Beckham MD [Active] -
Prescriptions:
Continued
calcium carbonate 500 mg calcium (1,250 mg) Tablet
500 mg PO DAILY
cholecalciferol (vitamin D3) [Vitamin D3] 25 mcg (1,000 unit) Tablet
25 mcg PO DAILY
magnesium oxide 400 mg magnesium Tablet
400 mg PO DAILY
polyethylene glycol 3350 [HealthyLax] 17 gram Powder In Packet
17 g PO DAILYPRN PRN (Reason: constipation) Qty: 14 0RF
acetaminophen [Tylenol] 325 mg Tablet
650 mg PO Q4HPRN MDD 3000 mg PRN (Reason: mild pain/fever >100)
therapeutic multivitamin Tablet
1 tab PO DAILY
magnesium hydroxide [Milk of Magnesia] 400 mg/5 mL Suspension
30 ml PO Q96H PRN (Reason: day 4 no bm)
Fleet Enema 19-7 gram/118 mL Enema
118 ml [place] DAILYPRN PRN (Reason: day 6 no bm, dulcolax ineffective)
Visbiome 112.5 billion cell Capsule
1 cap PO DAILY
anastrozole 1 mg Tablet
1 mg PO DAILY Qty: 10 0RF
clopidogrel 75 mg Tablet
75 mg PO DAILY Qty: 30 0RF
bisacodyl [Dulcolax (bisacodyl)] 10 mg Suppository
10 mg [place] DAILYPRN PRN (Reason: day 5 no bm, mom ineffective) Qty: 10 0RF
aripiprazole 5 mg Tablet
2.5 mg PO DAILY Qty: 15 0RF
escitalopram oxalate [Lexapro] 5 mg Tablet
5 mg PO HS Qty: 30 0RF
Edarbyclor 40-25 mg Tablet
1 tab PO DAILY Qty: 30 0RF
rosuvastatin 40 mg Tablet
40 mg PO HS Qty: 30 0RF
Discontinued
diazepam [Valium] 5 mg Tablet
5 mg PO HS
oxycodone 5 mg Tablet
5 mg PO Q8HPRN PRN (Reason: severe pain)
naloxone [Narcan] 4 mg/actuation [place],Non-Aerosol
1 spray INTRANASAL Q3MPRN PRN (Reason: opioid overdose)
Discharge Orders:
Discharge Patient (As Directed); Ordered 03/06/24
Ordered By: Benjie Martinez
Discharge Date and Time
Discharge Date/Time: 03/09/24 14:18
Print Language: YI
== END 2024-03-09 14:18 | disposition home health service (06) ==
LOC: 2 NORTH 18:10
PROVIDERS: Registered Nurse; ADMITTING PHYSICIAN Internal Medicine; ATTENDING PHYSICIAN Internal Medicine; CONSULT PHYSICIAN Psychiatry & Neurology Neurology; EMERGENCY PHYSICIAN Emergency Medicine; FAMILY PHYSICIAN Student in an Organized Health Care Education/Training Program
DX: G92.8 Other toxic encephalopathy (principal); T40.2X5A Adverse effect of other opioids, initial encounter; T42.4X5A Adverse effect of benzodiazepines, initial encounter; Y92.129 Unspecified place in nursing home as the place of occurrence of the external cause; R53.83 Other fatigue; F11.20 Opioid dependence, uncomplicated; G35 Multiple sclerosis; I10 Essential (primary) hypertension; M35.00 Sjogren syndrome, unspecified; G89.29 Other chronic pain; R53.1 Weakness; R41.0 Disorientation, unspecified; E66.9 Obesity, unspecified; R00.0 Tachycardia, unspecified; N17.9 Acute kidney failure, unspecified; D64.9 Anemia, unspecified; M19.90 Unspecified osteoarthritis, unspecified site; E87.6 Hypokalemia; E87.1 Hypo-osmolality and hyponatremia; F41.9 Anxiety disorder, unspecified; E78.5 Hyperlipidemia, unspecified; Z86.73 Personal history of transient ischemic attack (TIA), and cerebral infarction without residual deficits; Z68.38 Body mass index [BMI] 38.0-38.9, adult; Z88.8 Allergy status to other drugs, medicaments and biological substances; Z85.3 Personal history of malignant neoplasm of breast; Z91.041 Radiographic dye allergy status; Z75.1 Person awaiting admission to adequate facility elsewhere
CPT/HCPCS: 70450; 80048; 80053; 82962; 83735; 84484; 85025; 87070; 93005; 95816; 97163; 99285